=== PATIENT | male | born 1945 | race Caucasian/White ===

== ENCOUNTER 2017-10-27 00:58 | Observation (INO) | payer MEDICARE ==
[2017-10-27] MEDS ORDERED: MORPHINE SULFATE 4 MG INJ IV ONE (01:11)
[2017-10-27] MEDS ORDERED: Zofran 4 MG/2 ML VIAL IV ONE (01:11)
[2017-10-27] MEDS ORDERED: TORAdol 30 mg Injection IV ONE (01:11)
[2017-10-27] MEDS ORDERED: Pepcid 20 MG VIAL IV ONE ×2 (01:11→01:19)
[2017-10-27] MEDS ORDERED: Sodium Chloride 0.9% 1000 ML 1,000 ML IV STA (01:11)
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
[2017-10-27] MEDS ORDERED: Sodium Chloride 0.9% 1000 ML 1,000 ML ONE (01:19)
[2017-10-27] MEDS ORDERED: Zofran 4 MG/2 ML VIAL ONE (01:19)
[2017-10-27] MEDS ORDERED: TORAdol 30 mg Injection ONE (01:20)
[2017-10-27 01:32] LABS: BASOPHIL % 0.2 % (0.0-0.4); Basophil (Absolute #) 0.02 (0-0.4); Eosinophil % 2.9 % (0.00-5.0); Eosinophil (Absolute #) 0.29 (0-0.5); Granulocyte Absolute (ANC) 7.12 (1.4-6.9); Granulocytes % 70.7 % (36.0-66.0); Hematocrit 38.6 % (42-50); Hemoglobin 13.8 gm/dl (12.5-18.0); Lymphocyte (Absolute #) 1.92 (1.0-4.6); Lymphocytes % 19.1 % (24.0-44.0); Mean Cell Volume 92.8 fl (78-100); Mean Corpuscular Hemoglobin 33.2 pg (26-32); Mean Corpuscular Hgb Concent. 35.8 g/dl (32-36); Mean Platelet Volume 9.1 fl (6-9.5); Monocyte (Absolute #) 0.71 (0.0-1.3); Monocytes % 7.1 % (0.0-12.0); Platelet Count 148 K/mm3 (150-450); Red Blood Count 4.16 M/mm3 (4.1-5.6); Red Cell Distribution Width 12.8 % (11.5-14.0); White Blood Count 10.1 K/mm3 (4.0-10.5)
[2017-10-27 01:39] LABS: Appearance CLEAR (CLEAR); Bilirubin NEGATIVE (NEGATIVE); Blood NEGATIVE Ery/ul (0-5); Glucose NEGATIVE (NEGATIVE); Ketones NEGATIVE (NEGATIVE); Leukocyte Esterase NEGATIVE (NEGATIVE); Nitrite NEGATIVE (NEGATIVE); Protein,Urine Dip NEGATIVE (Negative); Specific Gravity 1.025 (1.005-1.025); Urobilinogen NORMAL mg/dL (0-1)
[2017-10-27 01:53] LABS: Amphetamine,Urine NEGATIVE (NEGATIVE); Barbiturate,Urine NEGATIVE (NEGATIVE); Benzodiazepine,Urine NEGATIVE (NEGATIVE); Cocaine,Urine NEGATIVE (NEGATIVE); Methadone,Urine NEGATIVE (NEGATIVE); Opiate,Urine NEGATIVE (NEGATIVE); PCP,Urine NEGATIVE (NEGATIVE); THC,Urine NEGATIVE (NEGATIVE)
[2017-10-27 02:23] LABS: ALBUMIN 4.5 g/dL (3.5-5.0); ALKALINE PHOSPHATASE 131 U/L (38-126); AMYLASE 82 U/L (30-110); ANION GAP 15.5 MEQ/L (5-15); BLOOD UREA NITROGEN 18 mg/dL (9-20); CHLORIDE 97 mmol/L (98-107); Carbon Dioxide 29 mmol/L (22-30); Creatinine 1 1.25 mg/dL (0.66-1.25); Glucose 117 mg/dL (74-106); LIPASE 71 U/L (23-300); Potassium 4.2 mmol/L (3.5-5.1); SGOT/AST 34 U/L (17-59); SGPT/ALT 28 U/L (0-50); SODIUM 137 mmol/L (137-145); Total Protein 7.2 g/dL (6.3-8.2)
[2017-10-27] MEDS ORDERED: MORPHINE SULFATE 2 MG INJ IV PRN (03:32)
[2017-10-27] MEDS ORDERED: Zofran 4 MG/2 ML VIAL IV PRN (03:32)
[2017-10-27] MEDS: Sodium Chloride 0.9% 1000 ML 1,000 ML IV SCH ×2 (04:14→14:29)
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
--- NOTE | 2017-10-27 09:28 | XRAY ---
Indication: Lower abdominal pain and cramping. Nausea, vomiting, diarrhea. History renal stones. Multiple contiguous axial images obtained through the abdomen and pelvis without contrast as ordered. Comparison: CT renal stone study November 10, 2008. Lung bases demonstrate a few calcified granulomas. No suspicious pulmonary mass, infiltrate, or effusion. Heart is not enlarged. Interval enlarging moderate-sized hiatal hernia. Noncontrasted stomach unremarkable. There are several mild fluid distended small bowel loops with synchronous fluid leveling. Intact right lower quadrant bowel anastomosis. Additional moderate air distended transverse and descending colon also with synchronous fluid leveling. Minimal narrowing at the descending/sigmoid junction with mild sigmoid/rectal fecal debris. Above findings may represent ileus versus enterocolitis. Partial distal colonic obstruction not completely excluded. No free fluid/air. Again nonobstructing bilateral renal micro-calculi and calcified splenic granulomas. New bilateral posterior urinary bladder tubular calcifications felt to be seminal vesicle calcifications. Again enlarged prostate gland impresses on the base of the urinary bladder. No hydronephrosis or hydroureter. Remaining liver, gallbladder, pancreas, spleen, adrenal glands, kidneys, ureters, and bladder appear unremarkable for noncontrast exam. Again mild aortoiliac calcifications without AAA. 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 Impression: 1. Abnormal distended small and large bowel loops with synchronous fluid leveling to the level of the descending/sigmoid colon junction either ileus versus enterocolitis. Partial colonic obstruction not completely excluded in the right clinical setting. 2. Interval enlarging moderate hiatal hernia. 3. Again nonobstructing bilateral renal micro-calculi, enlarged prostate gland, and evidence for old granulomatous disease. 4. Incidental new bilateral seminal vesicle calcifications commonly associated with diabetes and normal aging. 5. Interval worsening multilevel degenerative spondylosis and dextrorotoscoliosis. Comment: Preliminary interpretation was made by [facility]. No critical discrepancy. CT DI 13.96
[2017-10-27] MEDS ORDERED: NON-FORMULARY ITEM (Amlodipine Besylate 10 Mg [Norvasc 10 Mg] 10 MG) PO SCH (10:00)
[2017-10-27] MEDS ORDERED: Pepcid 20 MG VIAL IV SCH (10:00)
[2017-10-27] MEDS ORDERED: NORVASC 5 MG PO SCH ×2 (10:00)
[2017-10-27] MEDS ORDERED: Flomax 0.4 MG PO SCH ×2 (10:00)
[2017-10-27] MEDS ORDERED: ENOXAPARIN SODIUM SQ SCH (10:00)
[2017-10-27] MEDS: Pepcid 20 MG PO SCH ×2 (10:08→21:42)
[2017-10-28] MEDS: Sodium Chloride 0.9% 1000 ML 1,000 ML IV SCH (00:23)
[2017-10-28 05:52] LABS: BASOPHIL % 0.3 % (0.0-0.4); Basophil (Absolute #) 0.02 (0-0.4); Granulocyte Absolute (ANC) 3.28 (1.4-6.9); Granulocytes % 57.3 % (36.0-66.0); Hematocrit 37.5 % (42-50); Lymphocyte (Absolute #) 1.48 (1.0-4.6); Lymphocytes % 25.8 % (24.0-44.0); Mean Cell Volume 95.9 fl (78-100); Mean Corpuscular Hemoglobin 33.2 pg (26-32); Mean Corpuscular Hgb Concent. 34.7 g/dl (32-36); Mean Platelet Volume 9.5 fl (6-9.5); Monocyte (Absolute #) 0.55 (0.0-1.3); Monocytes % 9.6 % (0.0-12.0); Platelet Count 129 K/mm3 (150-450); Red Blood Count 3.91 M/mm3 (4.1-5.6); Red Cell Distribution Width 12.9 % (11.5-14.0); White Blood Count 5.7 K/mm3 (4.0-10.5)
[2017-10-28 05:58] LABS: ANION GAP 12.1 MEQ/L (5-15); BLOOD UREA NITROGEN 14 mg/dL (9-20); CHLORIDE 107 mmol/L (98-107); Calcium 8.5 mg/dL (8.4-10.2); Carbon Dioxide 24 mmol/L (22-30); Creatinine 1 0.99 mg/dL (0.66-1.25); Glucose 93 mg/dL (74-106); Potassium 4.2 mmol/L (3.5-5.1); SODIUM 138 mmol/L (137-145)
--- NOTE | 2017-10-28 07:34 | PCM.DCORD ---
- Discharge Discharge Date: 10/28/17 Disposition: Home, Self-Care Prescriptions: New Polyethylene Glycol 3350 17 gm [Miralax Powder 17GM PACKET] 17 gm PO DAILY #60 packet Continue Folic Acid 1 mg DAILY Multivitamin [Multi-Vitamin Daily] 1 ea DAILY Finasteride 5 mg [Proscar 5 MG] 5 mg DAILY Potassium Chloride 10 Meq Tab* [Klor Con 10 MEQ] 10 meq DAILY Tamsulosin HCl 0.4 mg [Flomax 0.4 MG] 0.4 mg DAILY Amlodipine Besylate 10 mg [Norvasc 10 MG] 10 mg DAILY Famotidine 20 mg [Pepcid 20 MG] 20 mg PO BID Etanercept [Enbrel] 50 mg SQ WEEKLY Eslicarbazepine Acetate [Aptiom] 600 mg PO BID Calcium Carbonate/Vitamin D3 [Calcium 500 mg Chewable Tablet] 1 each PO DAILY B12/Levomefolate Calcium/B-6 [Foltx Tablet] 1 each PO DAILY Aspirin [Ecotrin] 325 mg PO DAILY Follow up with: GALILEA DALLAS [Primary Care Provider] - 1 Week
[2017-10-28 08:33] VITALS: BP 122/74; PULSE 76; O2SAT 96
--- NOTE | 2017-10-28 08:35 | PCM.DCORD ---
- Discharge Discharge Date: 10/28/17 Prescriptions: New Polyethylene Glycol 3350 17 gm [Miralax Powder 17GM PACKET] 17 gm PO DAILY #60 packet Continue Folic Acid 1 mg DAILY Multivitamin [Multi-Vitamin Daily] 1 ea DAILY Finasteride 5 mg [Proscar 5 MG] 5 mg DAILY Potassium Chloride 10 Meq Tab* [Klor Con 10 MEQ] 10 meq DAILY Tamsulosin HCl 0.4 mg [Flomax 0.4 MG] 0.4 mg DAILY Amlodipine Besylate 10 mg [Norvasc 10 MG] 10 mg DAILY Famotidine 20 mg [Pepcid 20 MG] 20 mg PO BID Etanercept [Enbrel] 50 mg SQ WEEKLY Eslicarbazepine Acetate [Aptiom] 600 mg PO BID Calcium Carbonate/Vitamin D3 [Calcium 500 mg Chewable Tablet] 1 each PO DAILY B12/Levomefolate Calcium/B-6 [Foltx Tablet] 1 each PO DAILY Aspirin [Ecotrin] 325 mg PO DAILY Instructions: Acute Abdomen (Belly Pain), Adult (DC) Follow up with: GALILEA DALLAS [Primary Care Provider] - 11/04/17 9:00 am Forms: Discharge Instructions
--- NOTE | 2017-10-28 09:14 | DS ---
DISCHARGE DIAGNOSIS: OBSTIPATION: HOSPITAL COURSE: The patient is a 72 year-old white male patient who began having problems with abdominal pain and bloating. He has history of multiple abdominal surgeries in the past. He was brought into the emergency room. CT scan showed a possible blockage in his large bowel with dilatation of the bowel up to that point. Surgical consultation with Dr. Magallanes was obtained. The patient was placed a gut rest and later in the day of 10/27/2017 the patient began having large bowel movements. By the morning of 10/28/2017, he was essentially back to normal. His bowel was still slightly distended but with normal active bowel sounds. He had a regular diet later that evening and is now felt to be ready for discharge home again. The patient was instructed to take MiraLAX on a daily basis and to follow up in the office in one week to continue his usual home medications otherwise.
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
== END 2017-10-28 09:40 | disposition home or self-care (01) ==
LOC: ED 00:58 → MED SURG 03:29
PROVIDERS: ADMIT Family Medicine; ATTEND Family Medicine
DX: K59.00 Constipation, unspecified (principal); I10 Essential (primary) hypertension; N40.0 Benign prostatic hyperplasia without lower urinary tract symptoms
CPT/HCPCS: 36000; 36415; 74176; 80048; 80053; 80307; 81002; 82150; 83605; 83690; 84484; 85025; 93005; 96360; 96374; 96375; 99285; G0378; J1650; J1885; J2405; A9270-GY

== ENCOUNTER 2017-12-08 05:33 | Emergency (ER) | payer MEDICARE ==
[2017-12-08] MEDS ORDERED: Zofran 4 MG/2 ML VIAL IV ONE (05:53)
[2017-12-08] MEDS ORDERED: Sodium Chloride 0.9% 1000 ML 1,000 ML IV STA (05:53)
[2017-12-08] MEDS ORDERED: Zofran 4 MG/2 ML VIAL ONE (06:00)
[2017-12-08] MEDS ORDERED: Sodium Chloride 0.9% 1000 ML 1,000 ML ONE (06:00)
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
[2017-12-08 06:49] LABS: BASOPHIL % 0.2 % (0.0-0.4); Basophil (Absolute #) 0.02 (0-0.4); Eosinophil % 1.4 % (0.00-5.0); Eosinophil (Absolute #) 0.13 (0-0.5); Granulocyte Absolute (ANC) 7.84 (1.4-6.9); Granulocytes % 82.9 % (36.0-66.0); Hematocrit 38.1 % (42-50); Hemoglobin 13.2 gm/dl (12.5-18.0); Lymphocyte (Absolute #) 0.85 (1.0-4.6); Mean Cell Volume 96.2 fl (78-100); Mean Corpuscular Hemoglobin 33.3 pg (26-32); Mean Corpuscular Hgb Concent. 34.6 g/dl (32-36); Mean Platelet Volume 9.7 fl (6-9.5); Monocyte (Absolute #) 0.61 (0.0-1.3); Monocytes % 6.5 % (0.0-12.0); Platelet Count 158 K/mm3 (150-450); Red Blood Count 3.96 M/mm3 (4.1-5.6); Red Cell Distribution Width 13.2 % (11.5-14.0); White Blood Count 9.5 K/mm3 (4.0-10.5)
[2017-12-08 07:09] LABS: ALBUMIN 4.4 g/dL (3.5-5.0); ALKALINE PHOSPHATASE 122 U/L (38-126); BLOOD UREA NITROGEN 18 mg/dL (9-20); CHLORIDE 105 mmol/L (98-107); Calcium 9.3 mg/dL (8.4-10.2); Carbon Dioxide 29 mmol/L (22-30); Glucose 128 mg/dL (74-106); LIPASE 31 U/L (23-300); Potassium 4.2 mmol/L (3.5-5.1); SGOT/AST 34 U/L (17-59); SGPT/ALT 34 U/L (0-50); SODIUM 144 mmol/L (137-145); Total Protein 7.1 g/dL (6.3-8.2)
[2017-12-08 08:23] LABS: Appearance CLEAR (CLEAR); Bilirubin NEGATIVE (NEGATIVE); Glucose NEGATIVE (NEGATIVE); Ketones NEGATIVE (NEGATIVE); Leukocyte Esterase TRACE (NEGATIVE); Nitrite NEGATIVE (NEGATIVE); Protein,Urine Dip NEGATIVE (Negative); Urobilinogen NORMAL mg/dL (0-1)
[2017-12-08 08:24] LABS: Bacteria FEW /HPF (NEGATIVE); Epithelial Cells RARE /HPF (FEW); WBC 0-2 /HPF (0-5)
--- NOTE | 2017-12-08 08:48 | XRAY ---
Indication: Abdominal pain, nausea, and constipation. Multiple contiguous axial images obtained through the abdomen and pelvis using 80 cc Isovue 370 contrast only. Comparison: Noncontrast exam October 27, 2017. Lung bases demonstrate minimal bibasilar dependent atelectasis with stable tiny calcified granulomas. No infiltrate or effusion. Heart is not enlarged. Stable moderate-sized hiatal hernia. Stomach is mildly distended with food.. There is again distended small and large bowel loops with synchronous fluid leveling. There is again colonic distention up to 5.6 cm in diameter. Descending colon now demonstrates mild pericolonic stranding. Findings again either ileus versus enterocolitis. No free fluid/air. There is increasing fecal debris in the sigmoid colon. Bilateral seminal vesicle calcifications previously reported on noncontrast exam today appear to be distal ureteral calculi. New 10 mm right posterior urinary bladder calculus. Mild bilateral hydronephrosis but no hydroureter suggestive of mild partial obstruction. No perinephric fluid either. Stable calcified splenic granulomas and enlarged prostate gland. Remaining liver, gallbladder, pancreas, spleen, adrenal glands, kidneys, and bladder appear unremarkable. Stable mild aortoiliac calcifications. No AAA or pathologic retroperitoneal lymphadenopathy. 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 Impression: 1. Again distended small and large bowel loops with synchronous fluid leveling. New pericolonic stranding in the descending colon. Rule out ileus versus enterocolitis. Worsening sigmoid fecal impaction. 2. Previous bilateral seminal vesicle calcifications are actually distal ureteral calculi on today's contrasted exam. Also new 1 cm right bladder calculi. New mild bilateral hydronephrosis favoring partial obstructive uropathy. 3. Stable enlarged prostate gland and evidence for old granulomatous disease. CTDI 16.36
[2017-12-08] MEDS ORDERED: Dulcolax 10 MG SUPP PR ONE (09:10)
[2017-12-08 09:23] VITALS: BP 139/78; PULSE 86; O2SAT 97
== END 2017-12-08 09:40 | disposition home or self-care (01) ==
LOC: ED 05:33
DX: K59.00 Constipation, unspecified (principal); R10.84 Generalized abdominal pain; R11.2 Nausea with vomiting, unspecified; Z79.899 Other long term (current) drug therapy; Z79.82 Long term (current) use of aspirin
CPT/HCPCS: 36000; 36415; 74177; 80053; 81000; 82272; 83690; 85025; 87086; 96360; 96374; 99284; J2405; A9270-GY

== ENCOUNTER 2019-06-22 23:43 | Emergency (ER) | payer MEDICARE ==
[2019-06-23] MEDS ORDERED: Hydromorphone 1 mg/ml Ampule IV ONE (00:14)
[2019-06-23] MEDS ORDERED: Zofran 4 MG/2 ML VIAL IV ONE (00:14)
[2019-06-23] MEDS ORDERED: Sodium Chloride 0.9% 1000 ML 1,000 ML IV STA (00:14)
[2019-06-23] MEDS ORDERED: TORAdol 30 mg Injection IV ONE (00:14)
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
[2019-06-23] MEDS ORDERED: Zofran 4 MG/2 ML VIAL ONE (00:18)
[2019-06-23] MEDS ORDERED: Hydromorphone 1 mg/ml Ampule ONE (00:19)
[2019-06-23] MEDS ORDERED: TORAdol 30 mg Injection ONE (00:19)
[2019-06-23] MEDS ORDERED: Sodium Chloride 0.9% 1000 ML 1,000 ML ONE (00:19)
[2019-06-23 00:42] LABS: Absolute Neutrophil Ct (ANC) 10.93 (1.4-6.9); BASOPHIL % 0.2 % (0.0-0.4); Basophil (Absolute #) 0.03 (0-0.4); Eosinophil % 0.3 % (0.00-5.0); Eosinophil (Absolute #) 0.04 (0-0.5); Hematocrit 37.6 % (42-50); Hemoglobin 12.3 gm/dl (12.5-18.0); Lymphocyte (Absolute #) 1.07 (1.0-4.6); Lymphocytes % 8.2 % (24.0-44.0); Mean Cell Volume 96.9 fl (78-100); Mean Corpuscular Hemoglobin 31.7 pg (26-32); Mean Corpuscular Hgb Concent. 32.7 g/dl (32-36); Monocyte (Absolute #) 0.94 (0.0-1.3); Monocytes % 7.2 % (0.0-12.0); Neutrophil % 84.1 % (36.0-66.0); Platelet Count 266 K/mm3 (150-450); Red Blood Count 3.88 M/mm3 (4.1-5.6); Red Cell Distribution Width 13.4 % (11.5-14.0)
[2019-06-23 00:50] LABS: Appearance SLIGHTLY CLOUDY (CLEAR); Bilirubin NEGATIVE (NEGATIVE); Blood SMALL Ery/ul (0-5); Glucose NEGATIVE (NEGATIVE); Ketones NEGATIVE (NEGATIVE); Leukocyte Esterase NEGATIVE (NEGATIVE); Mucus SLIGHT /HPF (NEGATIVE); Nitrite NEGATIVE (NEGATIVE); Protein,Urine Dip 30 (Negative); Urobilinogen NEGATIVE mg/dL (0-1)
[2019-06-23 00:53] LABS: ANION GAP 14.2 MEQ/L (5-15); BILIRUBIN,TOTAL 0.4 mg/dL (0.2-1.3); Calcium 9.4 mg/dL (8.4-10.2); Creatinine 1 1.5 mg/dL (0.66-1.25); Potassium 3.7 mmol/L (3.5-5.1); Total Protein 7.1 g/dL (6.3-8.2)
[2019-06-23] MEDS ORDERED: Flomax 0.4 MG PO ONE (01:38)
[2019-06-23] MEDS ORDERED: Flomax 0.4 MG ONE (01:40)
[2019-06-23 02:30] VITALS: BP 158/99; PULSE 70; O2SAT 97
--- NOTE | 2019-06-23 09:43 | XRAY ---
Indication: Right abdomen/flank pain. Multiple contiguous axial images obtained through the abdomen and pelvis without contrast as ordered. Comparison: December 08, 2017. Lung bases again demonstrates mild fibrosis/scarring and tiny calcified granulomas. No infiltrate or effusion. Heart is not enlarged. Stable small hiatal hernia. Stomach is unremarkable. Noncontrasted bowel loops appear nonobstructed again with right hemicolectomy. Intact anastomosis. No free fluid/air. There are again multiple distal bilateral ureteral calculi, right greater the left. Proximal right ureter is now distended up to 11 mm and there is moderate hydronephrosis consistent with obstructive uropathy. Left kidney negative for hydronephrosis or obstructive uropathy. There are again multiple bilateral renal micro-calculi. Posterior urinary bladder demonstrates interval enlarging chunky calculi on the right today measuring 1.5 x 1.8 cm. Bladder mass not completely excluded. Stable calcified splenic granulomas and enlarged prostate gland with benign calcifications. Remaining liver, gallbladder, pancreas, spleen, antigen glands appear unremarkable for noncontrast exam. Stable mild scattered aortoiliac calcifications without AAA. Osseous structures again demonstrates osteopenia, moderate/advanced multilevel degenerative spondylosis, and dextrorotoscoliosis. Impression: 1. Worsening bilateral distal ureteral and urinary bladder calculi as detailed. Also worsening right sided hydronephrosis and hydroureter. Again additional bilateral renal micro-calculi. 2. Stable hiatal hernia, enlarged prostate, chronic bony findings, and evidence for old granulomatous disease. Comment: Preliminary interpretation was made by [facility]. No critical discrepancy.
== END 2019-06-23 02:46 | disposition home or self-care (01) ==
LOC: ED 23:43
DX: N20.1 Calculus of ureter (principal)
CPT/HCPCS: 36000; 36415; 74176; 80053; 81001; 82150; 83605; 83690; 85025; 87086; 96360; 96374; 96375; 99284; J1170; J1885; J2405; A9270-GY

== ENCOUNTER 2019-08-15 08:04 | Emergency (ER) | payer MEDICARE | END 2019-08-15 08:18 | disposition left against medical advice (07) | LOC: ED 08:04 | DX: Z53.9 Procedure and treatment not carried out, unspecified reason (principal) ==

== ENCOUNTER 2019-09-02 08:52 | Emergency (ER) | payer MEDICARE ==
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
[2019-09-02 10:28] LABS: Absolute Neutrophil Ct (ANC) 6.74 (1.4-6.9); BASOPHIL % 0.1 % (0.0-0.4); Basophil (Absolute #) 0.01 (0-0.4); Eosinophil % 1.1 % (0.00-5.0); Eosinophil (Absolute #) 0.09 (0-0.5); Hematocrit 34.9 % (42-50); Hemoglobin 11.2 gm/dl (12.5-18.0); Lymphocyte (Absolute #) 0.75 (1.0-4.6); Lymphocytes % 9.1 % (24.0-44.0); Mean Cell Volume 95.9 fl (78-100); Mean Corpuscular Hemoglobin 30.8 pg (26-32); Mean Corpuscular Hgb Concent. 32.1 g/dl (32-36); Mean Platelet Volume 9.1 fl (7.5-11.0); Monocyte (Absolute #) 0.64 (0.0-1.3); Monocytes % 7.8 % (0.0-12.0); Neutrophil % 81.9 % (36.0-66.0); Platelet Count 199 K/mm3 (150-450); Red Blood Count 3.64 M/mm3 (4.1-5.6); Red Cell Distribution Width 13.3 % (11.5-14.0); White Blood Count 8.2 K/mm3 (4.0-10.5)
[2019-09-02 11:25] LABS: ALBUMIN 3.3 g/dL (3.5-5.0); ALKALINE PHOSPHATASE 104 U/L (38-126); ANION GAP 11.7 MEQ/L (5-15); BLOOD UREA NITROGEN 15 mg/dL (9-20); CHLORIDE 107 mmol/L (98-107); Calcium 8.9 mg/dL (8.4-10.2); Carbon Dioxide 28 mmol/L (22-30); Creatinine 1 0.71 mg/dL (0.66-1.25); Glucose 101 mg/dL (74-106); MAGNESIUM 1.9 mg/dL (1.6-2.3); Potassium 4.4 mmol/L (3.5-5.1); SGOT/AST 22 U/L (17-59); SGPT/ALT 17 U/L (0-50); SODIUM 143 mmol/L (137-145); Total Protein 6.2 g/dL (6.3-8.2)
[2019-09-02] MEDS ORDERED: ENOXAPARIN SODIUM SQ ONE ×2 (13:50→14:15)
[2019-09-02 14:17] LABS: INR 1.04 (0.8-3.0); PROTIME 11.8 SECONDS (8.83-12.87)
[2019-09-02 14:18] VITALS: BP 143/72; PULSE 86; O2SAT 95
[2019-09-02 14:19] LABS: PTT 28.9 SECONDS (24.1-36.1)
--- NOTE | 2019-09-02 19:59 | XRAY ---
Indication: Pain. No known injury. Comparison: None 3 views of the left shoulder demonstrates osteopenia and total shoulder arthroplasty with intact bipolar prosthesis. No other bony, articular, or soft tissue abnormalities. Comment: Preliminary interpretation was made by [facility]. No critical discrepancy.
--- NOTE | 2019-09-02 20:01 | XRAY ---
Indication: Pain. No known injury. Comparison: None 2 views of the right femur demonstrates mild osteopenia, medial/lateral knee degenerative chondrocalcinosis, and scattered vascular calcifications. No other bony, articular, or soft tissue abnormalities. Comment: Preliminary interpretation was made by [facility]. No critical discrepancy.
--- NOTE | 2019-09-02 20:01 | XRAY ---
Indication: Pain. No known injury. Comparison: None 2 views of the right knee demonstrates mild osteopenia, scattered vascular calcifications, and faint medial/lateral knee degenerative chondrocalcinosis. No other bony, articular, or soft tissue abnormalities. Comment: Preliminary interpretation was made by [facility]. No critical discrepancy.
--- NOTE | 2019-09-02 20:03 | XRAY ---
Indication: Pain and swelling. No known injury. 2-dimensional sonogram and color Doppler imaging of the major venous vessels of the right leg was performed. Comparison: None There is minimal eccentric thrombus seen in the common femoral vein. No other thrombus seen in the remaining deep venous vessels including greater saphenous vein. Patent veins demonstrate normal compressibility. Venous waveforms are normal with and without augmentation. Impression: Minimal deep vein thrombosis in the common femoral vein. Comment: Preliminary report was given.
--- NOTE | 2019-09-02 20:09 | XRAY ---
Indication: Elevated d-dimer. Right leg DVT. Multiple contiguous axial images obtained through the chest using 100 cc Isovue 370 contrast and PE protocol. Comparison: CT chest without contrast April 10, 2009. There is good opacification of the pulmonary arteries to include the lobar and segmental branches. No filling defect or pulmonary embolus. Heart is not enlarged. Aorta is normal in course and caliber. Stable small left perihilar calcified nodes. No pathologic mediastinal/hilar lymphadenopathy. New small hiatal hernia. Examination of the lung parenchyma again demonstrates tiny calcified/noncalcified granulomas and minimal scattered fibrosis/scarring. No suspicious pulmonary mass, infiltrate, or effusion. Bony thorax now demonstrates osteopenia and bilateral shoulder arthroplasty. Limited upper abdomen unremarkable. Impression: 1. Negative pulmonary embolus. No acute cardiopulmonary abnormalities. 2. New small hiatal hernia and bilateral shoulder arthroplasty. 3. Again evidence for old granulomatous disease. Comment: Preliminary interpretation was made by [facility]. No critical discrepancy.
== END 2019-09-02 14:36 | disposition home or self-care (01) ==
LOC: ED 08:52
DX: I82.4Z1 Acute embolism and thrombosis of unspecified deep veins of right distal lower extremity (principal); M25.512 Pain in left shoulder; R79.89 Other specified abnormal findings of blood chemistry; I10 Essential (primary) hypertension; M25.561 Pain in right knee; Z79.899 Other long term (current) drug therapy
CPT/HCPCS: 36000; 36415; 71260; 73030; 73552; 73560; 80053; 83735; 84484; 84550; 85025; 85379; 85610; 85730; 93005; 93971; 96372; 99284; J1650

== ENCOUNTER 2019-11-12 10:22 | Emergency (ER) | payer MEDICARE ==
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
[2019-11-12] MEDS ORDERED: Sodium Chloride 0.9% 1000 ML 1,000 ML IV STA (10:37)
[2019-11-12] MEDS ORDERED: Zofran 4 MG/2 ML VIAL IV ONE (10:37)
[2019-11-12] MEDS ORDERED: Zofran 4 MG/2 ML VIAL ONE (10:43)
[2019-11-12] MEDS ORDERED: Sodium Chloride 0.9% 1000 ML 1,000 ML ONE (10:43)
[2019-11-12 11:05] LABS: Absolute Neutrophil Ct (ANC) 5.69 (1.4-6.9); BASOPHIL % 0.3 % (0.0-0.4); Basophil (Absolute #) 0.02 (0-0.4); Eosinophil % 1.2 % (0.00-5.0); Eosinophil (Absolute #) 0.09 (0-0.5); Hematocrit 34.3 % (42-50); Lymphocytes % 18.1 % (24.0-44.0); Mean Cell Volume 91.5 fl (78-100); Mean Corpuscular Hemoglobin 29.3 pg (26-32); Mean Corpuscular Hgb Concent. 32.1 g/dl (32-36); Mean Platelet Volume 8.5 fl (7.5-11.0); Monocyte (Absolute #) 0.52 (0.0-1.3); Monocytes % 6.7 % (0.0-12.0); Neutrophil % 73.7 % (36.0-66.0); Platelet Count 234 K/mm3 (150-450); Red Blood Count 3.75 M/mm3 (4.1-5.6); Red Cell Distribution Width 13.7 % (11.5-14.0); White Blood Count 7.7 K/mm3 (4.0-10.5)
[2019-11-12 11:08] LABS: Appearance CLEAR (CLEAR); Bilirubin NEGATIVE (NEGATIVE); Blood SMALL Ery/ul (0-5); Glucose NEGATIVE (NEGATIVE); Ketones NEGATIVE (NEGATIVE); Leukocyte Esterase NEGATIVE (NEGATIVE); Mucus SLIGHT /HPF (NEGATIVE); Nitrite NEGATIVE (NEGATIVE); Protein,Urine Dip NEGATIVE (Negative); Specific Gravity 1.015 (1.005-1.025); Urobilinogen NEGATIVE mg/dL (0-1)
[2019-11-12 11:15] LABS: ALBUMIN 3.6 g/dL (3.5-5.0); ALKALINE PHOSPHATASE 117 U/L (38-126); AMYLASE 99 U/L (30-110); ANION GAP 11.6 MEQ/L (5-15); BLOOD UREA NITROGEN 18 mg/dL (9-20); CHLORIDE 102 mmol/L (98-107); Calcium 9.2 mg/dL (8.4-10.2); Carbon Dioxide 27 mmol/L (22-30); Creatinine 1 0.89 mg/dL (0.66-1.25); Glucose 93 mg/dL (74-106); LIPASE 70 U/L (23-300); Potassium 3.9 mmol/L (3.5-5.1); SGOT/AST 24 U/L (17-59); SGPT/ALT 26 U/L (0-50); SODIUM 137 mmol/L (137-145); Total Protein 6.6 g/dL (6.3-8.2)
[2019-11-12 11:32] VITALS: BP 149/82; PULSE 76; O2SAT 98
--- NOTE | 2019-11-12 11:48 | XRAY ---
Indication: Left flank pain. History kidney stone. Multiple contiguous axial images obtained through the abdomen and pelvis without contrast as ordered. Comparison: December 08, 2017. Lung bases demonstrates right middle lobe and left lower lobe calcified granulomas. No infiltrate or effusion. Heart is not enlarged. Noncontrasted stomach and bowel loops appear nonobstructed. Interval partial right hemicolectomy and sigmoid resection with intact anastomosis. No free fluid/air. Again mild diffuse fecal debris in the remaining colon/rectum. New 7 mm distal left ureter calculus approximately 2 cm proximal to the UVJ. Distal right ureter and UVJ calculi are diminished in number with now solitary 5-6 mm UVJ calculus. Posterior right urinary bladder micro-calculi are increased in number now numbering 3-4, largest 5 mm. No hydronephrosis, hydroureter, or perinephric fluid. Left and right kidneys demonstrates at least 2 micro-calculi, largest right midpole measuring 4 mm. Stable calcified splenic granulomas and enlarged prostate gland. Remaining liver, gallbladder, pancreas, spleen, adrenal glands, kidneys, ureters, and bladder appear unremarkable for noncontrast exam. Stable mild aortoiliac calcifications without AAA. Osseous structures again demonstrate moderate/advanced degenerative spondylosis throughout the thoracolumbar spine and dextrorotoscoliosis. Impression: 1. New 7 mm distal left ureter calculus without hydronephrosis/hydroureter or evidence for obstructive uropathy. Again bilateral renal, distal right ureter, and urinary bladder micro-calculi as detailed. 2. Status post partial right hemicolectomy and sigmoid resection without complications. Again mild fecal stasis. 3. Stable enlarged prostate gland, chronic bony findings, and evidence for granulomatous disease.
== END 2019-11-12 12:23 | disposition home or self-care (01) ==
LOC: ED 10:22
DX: N20.1 Calculus of ureter (principal); N20.0 Calculus of kidney
CPT/HCPCS: 36000; 36415; 74176; 80053; 81001; 82150; 83605; 83690; 85025; 96360; 96374; 99284; J2405

== ENCOUNTER 2019-11-20 05:42 | Emergency (ER) | payer OTHER ==
[2019-11-20] MEDS ORDERED: TORAdol 30 mg Injection ONE (06:16)
[2019-11-20] MEDS: TORAdol 30 mg Injection IM ONE (06:17)
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
[2019-11-20 07:46] VITALS: BP 151/84; PULSE 75; O2SAT 97
--- NOTE | 2019-11-20 08:52 | XRAY ---
Indication: Pain following fall. Comparison: None 3 view left knee demonstrates mild osteopenia and moderate scattered vascular calcifications. No other bony, articular, or soft tissue abnormalities.
--- NOTE | 2019-11-20 08:54 | XRAY ---
Indication: Left hip pain following fall 4 days ago. Multiple contiguous axial images obtained through the pelvis with special attention to the osseous structures. Sagittal and coronal reformatted images obtained. Comparison: November 12, 2019. Osseous structures remain demineralized with stable lower lumbar degenerative spondylosis, scoliosis, and tiny right sacrum subcortical cyst. No acute fracture, dislocation, or suspicious bony lesions. Visualized noncontrasted soft tissues unremarkable with stable intact right hemicolectomy, enlarged prostate gland, and scattered vascular calcifications. Previous left ureter calculus has passed. No ventral or inguinal hernias. Impression: 1. Negative acute fracture/dislocation. 2. Stable incidental chronic features as detailed above.
== END 2019-11-20 08:06 | disposition home or self-care (01) ==
LOC: ED 05:42
DX: S70.02XA Contusion of left hip, initial encounter (principal); W01.198A Fall on same level from slipping, tripping and stumbling with subsequent striking against other object, initial encounter
CPT/HCPCS: 72192; 73562; 96372; 99284; J1885

== ENCOUNTER 2019-11-26 15:40 | Emergency (ER) | payer MEDICARE ==
[2019-11-26 15:55] VITALS: BP 143/90
[2019-11-26] MEDS ORDERED: PERCOCET TABLET 5/325MG PO STA (16:10)
[2019-11-26] MEDS ORDERED: PERCOCET TABLET 5/325MG ONE (16:15)
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
[2019-11-26 16:20] VITALS: PULSE 98; O2SAT 98
== END 2019-11-26 16:36 | disposition home or self-care (01) ==
LOC: ED 15:40
DX: M25.562 Pain in left knee (principal); M19.90 Unspecified osteoarthritis, unspecified site
CPT/HCPCS: 36415; 99283; A9270-GY

== ENCOUNTER 2019-12-03 20:43 | Emergency (ER) | payer MEDICARE ==
[2019-12-03] MEDS ORDERED: TORAdol 30 mg Injection IM ONE (21:10)
[2019-12-03] MEDS ORDERED: DECADRON 10MG INJ. PO ONE (21:12)
[2019-12-03] MEDS ORDERED: DECADRON 10MG INJ. ONE (21:27)
[2019-12-03] MEDS ORDERED: TORAdol 30 mg Injection ONE (21:27)
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
[2019-12-03] MEDS ORDERED: Sodium Chloride 0.9% 1000 ML 1,000 ML ONE (21:51)
[2019-12-03] MEDS ORDERED: TYLENOL 325 MG ONE (21:51)
[2019-12-03 22:03] LABS: Appearance CLEAR (CLEAR); Bilirubin NEGATIVE (NEGATIVE); Blood SMALL Ery/ul (0-5); Glucose NEGATIVE (NEGATIVE); Ketones NEGATIVE (NEGATIVE); Leukocyte Esterase NEGATIVE (NEGATIVE); Mucus SLIGHT /HPF (NEGATIVE); Nitrite NEGATIVE (NEGATIVE); Protein,Urine Dip NEGATIVE (Negative); Specific Gravity 1.023 (1.005-1.025); Urobilinogen NEGATIVE mg/dL (0-1); WBC 0-2 /HPF (0-5)
[2019-12-03 23:38] VITALS: BP 133/102; PULSE 72; O2SAT 98
--- NOTE | 2019-12-04 08:41 | XRAY ---
Indication: Low back pain. Comparison: None AP/lateral lumbar spine demonstrates 5 lumbar vertebral segments with age-related osteopenia, moderate dextrorotoscoliosis centered at L1, mild/moderate multilevel degenerative spondylosis greatest L2-L3, aortic calcifications, 6 mm right renal calcification/calculus, and right mid abdomen suture material. No other bony, articular, or soft tissue abnormalities. Comment: Preliminary interpretation was made by [facility]. No critical discrepancy.
== END 2019-12-03 23:40 | disposition home or self-care (01) ==
LOC: ED 20:43
DX: M54.5 Low back pain (principal); M41.56 Other secondary scoliosis, lumbar region; I10 Essential (primary) hypertension; Z79.899 Other long term (current) drug therapy; R31.29 Other microscopic hematuria
CPT/HCPCS: 72100; 81001; 96372; 99284; J1100; J1885; A9270-GY

== ENCOUNTER 2020-01-25 12:27 | Emergency (ER) | payer MEDICARE ==
[2020-01-25 12:44] VITALS: O2SAT 97
[2020-01-25 13:31] VITALS: BP 134/76; PULSE 79
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
--- NOTE | 2020-01-25 14:14 | XRAY ---
Exam: Bilateral lower extremity duplex Doppler venous ultrasound exam from 01/25/2020. Comparison: Right lower extremity duplex Doppler venous ultrasound exam from 09/02/2019. Indication: Pain within right upper leg, history of prior DVT in right common femoral vein. Patient is currently taking blood thinners. Findings: Garcia scale images, color flow images, and Doppler tracings were obtained of both lower extremities in the usual manner. Normal color blood flow, transducer compression, and Doppler signal without and with augmentation was seen throughout bilaterally. Specifically, no evidence of clot was seen within the right common femoral vein. Normal compression is seen within both greater saphenous veins within each proximal thigh. At the posterior medial aspect of the right knee level, there is a small relatively hypoechoic/sonolucent area measuring about 2.8 cm x 0.8 cm in cross section which may represent a small popliteal cyst. Some cine clips were obtained at this level. This is separate from the popliteal vessels. Impression: 1. I see no evidence of residual deep venous thrombosis within the proximal right thigh or elsewhere throughout both lower extremities. No superficial venous thrombosis was seen as well. 2. Relatively sonolucent area at posterior medial aspect of right knee may represent a popliteal cyst.
== END 2020-01-25 13:50 | disposition home or self-care (01) ==
LOC: ED 12:27
DX: M25.561 Pain in right knee (principal); M71.21 Synovial cyst of popliteal space [Baker], right knee; M79.606 Pain in leg, unspecified; Z86.718 Personal history of other venous thrombosis and embolism; M79.672 Pain in left foot; M79.671 Pain in right foot; M79.652 Pain in left thigh; M79.651 Pain in right thigh; Z79.899 Other long term (current) drug therapy; I10 Essential (primary) hypertension; G40.909 Epilepsy, unspecified, not intractable, without status epilepticus
CPT/HCPCS: 93970; 99283

== ENCOUNTER 2020-02-23 15:01 | Emergency (ER) | payer MEDICARE ==
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
[2020-02-23] MEDS ORDERED: TORAdol 30 mg Injection IM ONE (16:08)
[2020-02-23] MEDS ORDERED: TORAdol 30 mg Injection ONE (16:15)
[2020-02-23 16:29] VITALS: BP 147/83; PULSE 76; O2SAT 97
--- NOTE | 2020-02-23 18:36 | XRAY ---
Indication: Bilateral hip pain. No known injury. Comparison: None AP pelvis and 2 views of the left and right hip demonstrates mild osteopenia, moderate/advanced right hip degenerative arthropathy, lower lumbar degenerative spondylosis, and right pelvic inlet suture material. No other bony, articular, or soft tissue abnormalities. Comment: Preliminary interpretation was made by [facility]. No critical discrepancy.
== END 2020-02-23 16:37 | disposition home or self-care (01) ==
LOC: ED 15:01
DX: M16.11 Unilateral primary osteoarthritis, right hip (principal); M25.551 Pain in right hip; Z79.899 Other long term (current) drug therapy; I10 Essential (primary) hypertension; Z86.718 Personal history of other venous thrombosis and embolism; G40.909 Epilepsy, unspecified, not intractable, without status epilepticus
CPT/HCPCS: 73521; 96372; 99284; J1885

== ENCOUNTER 2020-06-29 14:11 | Emergency (ER) | payer MEDICARE ==
[2020-06-29] MEDS ORDERED: Sodium Chloride 0.9% 1000 ML 1,000 ML IV STA (14:35)
[2020-06-29] MEDS ORDERED: Zofran 4 MG/2 ML VIAL IV ONE (14:35)
[2020-06-29] MEDS ORDERED: ANTIVERT 25 MG PO ONE (14:37)
[2020-06-29] MEDS ORDERED: Sodium Chloride 0.9% 1000 ML 1,000 ML ONE (14:44)
[2020-06-29] MEDS ORDERED: ANTIVERT 25 MG ONE (14:44)
[2020-06-29] MEDS ORDERED: Zofran 4 MG/2 ML VIAL ONE (14:44)
[2020-06-29 14:59] LABS: Absolute Neutrophil Ct (ANC) 9.68 (1.4-6.9); BASOPHIL % 0.2 % (0.0-0.4); Basophil (Absolute #) 0.02 (0-0.4); Eosinophil % 0.1 % (0.00-5.0); Eosinophil (Absolute #) 0.01 (0-0.5); Hematocrit 30.1 % (42-50); Hemoglobin 9.1 gm/dl (12.5-18.0); Lymphocyte (Absolute #) 0.55 (1.0-4.6); Lymphocytes % 5.1 % (24.0-44.0); Mean Cell Volume 87.8 fl (78-100); Mean Corpuscular Hemoglobin 26.5 pg (26-32); Mean Corpuscular Hgb Concent. 30.2 g/dl (32-36); Mean Platelet Volume 8.4 fl (7.5-11.0); Monocyte (Absolute #) 0.47 (0.0-1.3); Monocytes % 4.4 % (0.0-12.0); Neutrophil % 90.2 % (36.0-66.0); Platelet Count 322 K/mm3 (150-450); Red Blood Count 3.43 M/mm3 (4.1-5.6); Red Cell Distribution Width 14.7 % (11.5-14.0); White Blood Count 10.7 K/mm3 (4.0-10.5)
[2020-06-29 15:20] LABS: ALBUMIN 3.9 g/dL (3.5-5.0); ALKALINE PHOSPHATASE 125 U/L (38-126); AMYLASE 74 U/L (30-110); BLOOD UREA NITROGEN 17 mg/dL (9-20); CHLORIDE 87 mmol/L (98-107); Calcium 9.2 mg/dL (8.4-10.2); Carbon Dioxide 29 mmol/L (22-30); Creatinine 1 0.78 mg/dL (0.66-1.25); EST GLOMERULAR FILTRATION RATE > 60.0 ML/MIN; Glucose 135 mg/dL (74-106); LIPASE 35 U/L (23-300); SGOT/AST 33 U/L (17-59); SGPT/ALT 36 U/L (0-50); SODIUM 123 mmol/L (137-145); Total Protein 7.1 g/dL (6.3-8.2)
[2020-06-29 15:21] LABS: Potassium 4.8 mmol/L (3.5-5.1)
[2020-06-29 15:22] LABS: ANION GAP 11.8 MEQ/L (5-15)
[2020-06-29 16:20] LABS: Appearance CLEAR (CLEAR); Bilirubin NEGATIVE (NEGATIVE); Blood NEGATIVE Ery/ul (0-5); Glucose NEGATIVE (NEGATIVE); Ketones NEGATIVE (NEGATIVE); Leukocyte Esterase NEGATIVE (NEGATIVE); Nitrite NEGATIVE (NEGATIVE); Protein,Urine Dip NEGATIVE (Negative); Specific Gravity 1.013 (1.005-1.025); Urobilinogen NEGATIVE mg/dL (0-1)
[2020-06-29 16:21] VITALS: BP 179/80; PULSE 90; O2SAT 97
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
--- NOTE | 2020-06-29 18:25 | XRAY ---
Indication: Nausea, vomiting, and dizziness. Multiple contiguous axial images obtained through the head without contrast. Comparison: None Age-appropriate global atrophy and minimal periventricular degenerative microvascular ischemia. No acute intracranial hemorrhage, abnormal extra-axial fluid collection, or mass effect. Fourth ventricle is midline without hydrocephalus. Bony calvarium intact. Visualized paranasal sinuses and mastoid air cells are clear. Impression: Nonacute senile brain. Comment: Preliminary interpretation was made by [facility]. No critical discrepancy.
--- NOTE | 2020-06-29 18:27 | XRAY ---
Indication: Nausea, vomiting, and dizziness. Comparison: None 2 view abdomen demonstrates nonspecific nonobstructed bowel gas pattern. Several right abdominal suture material. No large free air. Splenic calcific granulomas. Remaining solid organs are unremarkable. 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 Single PA chest demonstrates normal heart and lungs with incidental right hemidiaphragm elevation. Bony thorax intact with mild osteopenia, degenerative changes, and bilateral total shoulder arthroplasty. Impression: Nonacute nonobstructed abdomen with chronic features. Nonacute one view chest with chronic features. Comment: Preliminary interpretation was made by [facility]. No critical discrepancy.
== END 2020-06-29 16:49 | disposition left against medical advice (07) ==
LOC: ED 14:11
DX: E87.1 Hypo-osmolality and hyponatremia (principal); R42 Dizziness and giddiness; R11.2 Nausea with vomiting, unspecified; M06.9 Rheumatoid arthritis, unspecified; I10 Essential (primary) hypertension; E78.5 Hyperlipidemia, unspecified; G40.909 Epilepsy, unspecified, not intractable, without status epilepticus; R53.81 Other malaise; R53.1 Weakness; Z79.899 Other long term (current) drug therapy
CPT/HCPCS: 36000; 36415; 70450; 74022; 80053; 81001; 82150; 83605; 83690; 84484; 85025; 87040; 93005; 96360; 96361; 96374; 99284; J2405; A9270-GY

== ENCOUNTER 2020-08-11 10:33 | Emergency (ER) | payer MEDICARE ==
--- NOTE | 2020-08-11 12:52 | XRAY ---
Indication: Pain. No acute injury. Multiple contiguous axial images obtained through the cervical spine. Sagittal and coronal reformatted images obtained. Comparison: January 11, 2020. Again age-related osteopenia and tiny bone island right 1st rib. Axial images remain negative for acute fracture or suspicious bony lesions. Grossly stable mild/moderate C3-C7 degenerative endplate spurring, atlantoaxial degenerative arthropathy, and bilateral degenerative facet hypertrophy. Sagittal and coronal reformatted images again demonstrates C3-C7 disc space loss with minimal C7 anterolisthesis on T1. Again no acute compression fracture, new subluxation, or jumped facet. Normal-appearing craniocervical junction. Visualized noncontrasted soft tissues including base of the brain and lung apices are unremarkable. Impression: Stable CT cervical spine again demonstrating osteopenia and multilevel degenerative changes. No new/acute findings.
--- NOTE | 2020-08-11 12:56 | XRAY ---
Indication: Pain. No known injury. Multiple contiguous axial images obtained through the lumbar spine. Sagittal and coronal reformatted images obtained. Comparison: CT abdomen/pelvis November 12, 2019. Osseous structures remain demineralized consistent with patient's age. No acute fracture or suspicious bony lesions. Grossly stable moderate/advanced multilevel degenerative spondylosis throughout the visualized thoracolumbar spine and stable T11 Schmorl node. Sagittal and coronal reformatted images again demonstrates grossly stable moderate dextrorotoscoliosis centered at L2. No acute compression fracture or subluxation. Visualized noncontrasted soft tissues again demonstrates scattered aortoiliac calcifications without AAA, nonobstructing bilateral renal micro-calculi, and partially visualized bowel resection. Impression: Grossly stable osteopenia, multilevel degenerative spondylosis, dextrorotoscoliosis, T11 Schmorl node, and incidental soft tissue findings. No new/acute findings.
[2020-08-11] MEDS ORDERED: TORAdol 30 mg Injection IM ONE (13:03)
[2020-08-11] MEDS ORDERED: TORAdol 30 mg Injection ONE (13:03)
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
[2020-08-11 13:21] VITALS: BP 120/71; PULSE 82
[2020-08-11 13:24] VITALS: O2SAT 98
== END 2020-08-11 13:12 | disposition home or self-care (01) ==
LOC: ED 10:33
DX: M54.5 Low back pain (principal); M54.2 Cervicalgia; Z79.899 Other long term (current) drug therapy; G40.909 Epilepsy, unspecified, not intractable, without status epilepticus
CPT/HCPCS: 72125; 72131; 96372; 99284; J1885

== ENCOUNTER 2020-11-06 06:59 | Emergency (ER) | payer MEDICARE ==
[2020-11-06] MEDS ORDERED: TORAdol 30 mg Injection IM ONE (07:25)
[2020-11-06] MEDS ORDERED: TORAdol 30 mg Injection ONE (07:27)
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
[2020-11-06 08:24] VITALS: BP 161/90; PULSE 78; O2SAT 98
--- NOTE | 2020-11-06 09:38 | XRAY ---
Indication: Pain and swelling. Comparison: None 3 view left wrist demonstrates osteopenia and radiocarpal degenerative joint space narrowing. Minimal widened scapholunate interval concerning for underlying ligamentous tear. No other bony, articular, or soft tissue abnormalities.
== END 2020-11-06 08:23 | disposition home or self-care (01) ==
LOC: ED 06:59
DX: M25.532 Pain in left wrist (principal); X50.3XXA Overexertion from repetitive movements, initial encounter; Y99.8 Other external cause status; M77.9 Enthesopathy, unspecified
CPT/HCPCS: 73110; 96372; 99284; J1885

== ENCOUNTER 2020-12-31 08:52 | Emergency (ER) | payer MEDICARE ==
--- NOTE | 2020-12-31 09:39 | XRAY ---
Indication: Swelling. Comparison: None 3 view left ankle demonstrates a few tiny medial malleolus tip heterotopic ossifications presumed degenerative versus old injury. Moderate scattered vascular calcifications. No other bony, articular, or soft tissue abnormalities.
[2020-12-31 09:42] LABS: Absolute Neutrophil Ct (ANC) 6.15 (1.4-6.9); BASOPHIL % 0.3 % (0.0-0.4); Basophil (Absolute #) 0.02 (0-0.4); Eosinophil % 0.1 % (0.00-5.0); Eosinophil (Absolute #) 0.01 (0-0.5); Hematocrit 32.1 % (42-50); Hemoglobin 9.1 gm/dl (12.5-18.0); Lymphocyte (Absolute #) 0.95 (1.0-4.6); Lymphocytes % 12.4 % (24.0-44.0); Mean Cell Volume 88.4 fl (78-100); Mean Corpuscular Hemoglobin 25.1 pg (26-32); Mean Corpuscular Hgb Concent. 28.3 g/dl (32-36); Mean Platelet Volume 8.5 fl (7.5-11.0); Monocyte (Absolute #) 0.51 (0.0-1.3); Monocytes % 6.7 % (0.0-12.0); Neutrophil % 80.5 % (36.0-66.0); Platelet Count 251 K/mm3 (150-450); Red Blood Count 3.63 M/mm3 (4.1-5.6); Red Cell Distribution Width 15.7 % (11.5-14.0); White Blood Count 7.6 K/mm3 (4.0-10.5)
[2020-12-31 09:52] LABS: ALBUMIN 3.3 g/dL (3.5-5.0); ALKALINE PHOSPHATASE 78 U/L (38-126); BLOOD UREA NITROGEN 21 mg/dL (9-20); CHLORIDE 103 mmol/L (98-107); Calcium 8.4 mg/dL (8.4-10.2); Carbon Dioxide 31 mmol/L (22-30); Creatinine 1 0.79 mg/dL (0.66-1.25); EST GLOMERULAR FILTRATION RATE > 60.0 ML/MIN; Glucose 91 mg/dL (74-106); Potassium 3.7 mmol/L (3.5-5.1); SGOT/AST 25 U/L (17-59); SGPT/ALT 19 U/L (0-50); SODIUM 139 mmol/L (137-145); Total Protein 5.9 g/dL (6.3-8.2)
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
[2020-12-31 10:55] VITALS: BP 134/75; PULSE 64; O2SAT 98
== END 2020-12-31 11:09 | disposition home or self-care (01) ==
LOC: ED 08:52
DX: M19.90 Unspecified osteoarthritis, unspecified site (principal); M06.9 Rheumatoid arthritis, unspecified; M25.572 Pain in left ankle and joints of left foot; M25.472 Effusion, left ankle
CPT/HCPCS: 36415; 73610; 80053; 84550; 85025; 85652; 86140; 99283

== ENCOUNTER 2021-01-31 09:50 | Emergency (ER) | payer MEDICARE ==
[2021-01-31 10:57] VITALS: BP 156/91
[2021-01-31] MEDS ORDERED: Kenalog-40 IM ONE (11:03)
[2021-01-31] MEDS ORDERED: Kenalog-40 ONE (11:04)
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
[2021-01-31 11:12] VITALS: PULSE 90; O2SAT 98
== END 2021-01-31 11:44 | disposition home or self-care (01) ==
LOC: ED 09:50
DX: M13.832 Other specified arthritis, left wrist (principal); X50.0XXA Overexertion from strenuous movement or load, initial encounter; Y93.H2 Activity, gardening and landscaping
CPT/HCPCS: 96372; 99283; J3301

== ENCOUNTER 2021-05-19 08:56 | Emergency (ER) | payer MEDICARE ==
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
[2021-05-19 09:46] LABS: Absolute Neutrophil Ct (ANC) 6.53 (1.4-6.9); BASOPHIL % 0.5 % (0.0-0.4); Basophil (Absolute #) 0.04 (0-0.4); Eosinophil (Absolute #) 0.08 (0-0.5); Hematocrit 30.8 % (42-50); Hemoglobin 8.9 gm/dl (12.5-18.0); Lymphocyte (Absolute #) 1.13 (1.0-4.6); Lymphocytes % 13.6 % (24.0-44.0); Mean Corpuscular Hemoglobin 25.1 pg (26-32); Mean Corpuscular Hgb Concent. 28.9 g/dl (32-36); Mean Platelet Volume 8.4 fl (7.5-11.0); Monocyte (Absolute #) 0.52 (0.0-1.3); Monocytes % 6.3 % (0.0-12.0); Neutrophil % 78.6 % (36.0-66.0); Platelet Count 278 K/mm3 (150-450); Red Blood Count 3.54 M/mm3 (4.1-5.6); Red Cell Distribution Width 15.8 % (11.5-14.0); White Blood Count 8.3 K/mm3 (4.0-10.5)
[2021-05-19 10:00] LABS: ALBUMIN 3.1 g/dL (3.5-5.0); ALKALINE PHOSPHATASE 77 U/L (38-126); ANION GAP 8.5 MEQ/L (5-15); BLOOD UREA NITROGEN 14 mg/dL (9-20); CHLORIDE 109 mmol/L (98-107); Calcium 8.8 mg/dL (8.4-10.2); Carbon Dioxide 28 mmol/L (22-30); Creatinine 1 0.87 mg/dL (0.66-1.25); EST GLOMERULAR FILTRATION RATE > 60.0 ML/MIN; Glucose 87 mg/dL (74-106); Potassium 4.1 mmol/L (3.5-5.1); SGOT/AST 32 U/L (17-59); SGPT/ALT 29 U/L (0-50); SODIUM 141 mmol/L (137-145); Total Protein 5.6 g/dL (6.3-8.2)
--- NOTE | 2021-05-19 10:00 | XRAY ---
Indication: Cough. Comparison: June 29, 2020. Portable chest demonstrates new subtle right suprahilar and left base interstitial alveolar opacities. Remaining heart and lungs unremarkable again with chronic right hemidiaphragm elevation. Bony thorax intact again with osteopenia, degenerative changes, scoliosis, and bilateral shoulder arthroplasty.
[2021-05-19 10:25] LABS: Slide Review 1 YES
[2021-05-19 10:29] LABS: INFLUENZA A NEGATIVE (NEGATIVE); INFLUENZA B NEGATIVE (NEGATIVE); RESPIRATORY SYNCTIAL VIRUS NEGATIVE (Negative); SARS-CoV-2 Xpert Express NEGATIVE (NEGATIVE)
[2021-05-19 11:48] VITALS: BP 130/71; PULSE 75; O2SAT 94
== END 2021-05-19 11:30 | disposition home or self-care (01) ==
LOC: ED 08:56
DX: J18.9 Pneumonia, unspecified organism (principal); J02.9 Acute pharyngitis, unspecified; R05.9 Cough, unspecified; R09.81 Nasal congestion; I10 Essential (primary) hypertension; Z79.899 Other long term (current) drug therapy
CPT/HCPCS: 0241U; 36415; 71045; 80053; 83605; 84484; 85025; 87651; 93005; 99284

== ENCOUNTER 2021-05-23 06:16 | Emergency (ER) | payer MEDICARE ==
[2021-05-23 06:23] VITALS: BP 160/91; PULSE 95; O2SAT 97
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
== END 2021-05-23 07:06 | disposition home or self-care (01) ==
LOC: ED 06:16
DX: J18.9 Pneumonia, unspecified organism (principal); I10 Essential (primary) hypertension; Z79.52 Long term (current) use of systemic steroids; Z79.899 Other long term (current) drug therapy
CPT/HCPCS: 99283

== ENCOUNTER 2021-07-23 11:07 | Emergency (ER) | payer MEDICARE ==
[2021-07-23] MEDS ORDERED: TORAdol 30 mg Injection IM ONE (11:16)
[2021-07-23] MEDS ORDERED: TORAdol 30 mg Injection ONE (11:19)
[2021-07-23 11:22] VITALS: BP 137/71; PULSE 92; O2SAT 99
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
== END 2021-07-23 11:57 | disposition home or self-care (01) ==
LOC: ED 11:07
DX: M06.9 Rheumatoid arthritis, unspecified (principal); M25.532 Pain in left wrist; M25.531 Pain in right wrist; M79.642 Pain in left hand; M79.641 Pain in right hand; I10 Essential (primary) hypertension; Z86.718 Personal history of other venous thrombosis and embolism; K21.9 Gastro-esophageal reflux disease without esophagitis; Z79.52 Long term (current) use of systemic steroids; Z79.899 Other long term (current) drug therapy
CPT/HCPCS: 96372; 99283; J1885

== ENCOUNTER 2021-07-26 17:47 | Emergency (ER) | payer MEDICARE ==
[2021-07-26 18:08] VITALS: BP 131/73; PULSE 81; O2SAT 95
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
[2021-07-26] MEDS ORDERED: NORCO 5/325 MG PO ONE (18:28)
[2021-07-26] MEDS ORDERED: NORCO 5/325 MG ONE (18:30)
== END 2021-07-26 18:40 | disposition home or self-care (01) ==
LOC: ED 17:47
DX: M79.671 Pain in right foot (principal); I10 Essential (primary) hypertension; K21.9 Gastro-esophageal reflux disease without esophagitis; Z86.718 Personal history of other venous thrombosis and embolism; Z79.52 Long term (current) use of systemic steroids; Z79.899 Other long term (current) drug therapy
CPT/HCPCS: 99283; A9270-GY

== ENCOUNTER 2021-08-20 12:40 | Emergency (ER) | payer MEDICARE ==
[2021-08-20] MEDS ORDERED: Norflex 60 MG/2 ML IM ONE (13:28)
[2021-08-20] MEDS ORDERED: Norflex 60 MG/2 ML ONE (13:28)
[2021-08-20 13:59] VITALS: O2SAT 96
[2021-08-20 14:06] VITALS: BP 131/73; PULSE 78
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
== END 2021-08-20 14:21 | disposition home or self-care (01) ==
LOC: ED 12:40
DX: M79.604 Pain in right leg (principal); G89.29 Other chronic pain; Z96.641 Presence of right artificial hip joint; I10 Essential (primary) hypertension; K21.9 Gastro-esophageal reflux disease without esophagitis; Z79.52 Long term (current) use of systemic steroids; Z79.899 Other long term (current) drug therapy
CPT/HCPCS: 96372; 99283; J2360

== ENCOUNTER 2021-08-21 12:57 | Emergency (ER) | payer MEDICARE ==
[2021-08-21] MEDS ORDERED: TORAdol 30 mg Injection IM ONE (13:35)
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
--- NOTE | 2021-08-21 13:54 | XRAY ---
Indication: Pain. Comparison: February 23, 2020. 2 view right hip demonstrates interval total hip arthroplasty with intact bipolar prosthesis/acetabular screw. Stable osteopenia, lower lumbar degenerative changes, and right lower quadrant suture material. No other bony, articular, or soft tissue abnormalities.
[2021-08-21] MEDS ORDERED: TORAdol 30 mg Injection ONE (13:56)
[2021-08-21 14:05] VITALS: BP 189/79; PULSE 87
[2021-08-21 14:06] VITALS: O2SAT 98
== END 2021-08-21 14:22 | disposition home or self-care (01) ==
LOC: ED 12:57
DX: M54.31 Sciatica, right side (principal); G89.29 Other chronic pain; I10 Essential (primary) hypertension; K21.9 Gastro-esophageal reflux disease without esophagitis; Z79.891 Long term (current) use of opiate analgesic; Z79.52 Long term (current) use of systemic steroids; Z79.899 Other long term (current) drug therapy
CPT/HCPCS: 73502; 96372; 99284; J1885

== ENCOUNTER 2021-08-23 13:12 | Emergency (ER) | payer MEDICARE ==
[2021-08-23 13:26] VITALS: BP 149/78
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
[2021-08-23] MEDS ORDERED: TORAdol 30 mg Injection ONE (15:10)
[2021-08-23] MEDS ORDERED: TORAdol 30 mg Injection IM ONE (15:11)
[2021-08-23 15:38] VITALS: PULSE 60; O2SAT 98
--- NOTE | 2021-08-23 20:17 | XRAY ---
Indication: Low back and right leg pain 3 weeks. Multiple contiguous axial images obtained through the lumbar spine. Sagittal and coronal reformatted images obtained. Comparison: August 11, 2020. Again age-related osteopenia, moderate/advanced multilevel thoracolumbar degenerative spondylosis, moderate dextrorotoscoliosis centered at L2, and remote superior T11 endplate fracture. No acute fracture, subluxation, or suspicious bony lesions. Visualized noncontrasted soft tissues again demonstrates scattered aortoiliac calcifications and nonobstructing bilateral renal micro-calculi. Impression: Continued nonacute CT lumbar spine again with chronic features. Comment: Preliminary interpretation made by [facility]. No critical discrepancy.
== END 2021-08-23 15:38 | disposition home or self-care (01) ==
LOC: ED 13:12
DX: M54.50 Low back pain, unspecified (principal); G89.29 Other chronic pain; I10 Essential (primary) hypertension; K21.9 Gastro-esophageal reflux disease without esophagitis; Z79.891 Long term (current) use of opiate analgesic; Z79.01 Long term (current) use of anticoagulants; Z79.899 Other long term (current) drug therapy
CPT/HCPCS: 72131; 96372; 99284; J1885

== ENCOUNTER 2021-09-02 09:41 | Emergency (ER) | payer MEDICARE ==
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
[2021-09-02] MEDS ORDERED: Hydromorphone 1 mg/ml Injection IM ONE (10:43)
[2021-09-02] MEDS ORDERED: Norflex 60 MG/2 ML IM ONE (10:43)
[2021-09-02] MEDS ORDERED: ZOFRAN ODT 4 MG PO ONE (10:43)
[2021-09-02] MEDS ORDERED: solu-MEDROL 125 MG, Sterile H2O 10 ml 2 ML IM ONE ×2 (10:44)
[2021-09-02] MEDS ORDERED: Sterile H2O 10 ml IJ ONE (11:17)
[2021-09-02] MEDS ORDERED: solu-MEDROL ONE (11:17)
[2021-09-02 11:25] VITALS: BP 134/89; PULSE 72; O2SAT 98
== END 2021-09-02 11:28 | disposition home or self-care (01) ==
LOC: ED 09:41
DX: G89.29 Other chronic pain (principal); M25.551 Pain in right hip; I10 Essential (primary) hypertension; K21.9 Gastro-esophageal reflux disease without esophagitis; Z86.718 Personal history of other venous thrombosis and embolism; Z79.891 Long term (current) use of opiate analgesic; Z79.899 Other long term (current) drug therapy; Z79.52 Long term (current) use of systemic steroids
CPT/HCPCS: 96372; 99283; J2930

== ENCOUNTER 2021-09-03 05:49 | Emergency (ER) | payer MEDICARE ==
[2021-09-03] MEDS ORDERED: NORCO 5/325 MG PO ONE (06:38)
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
[2021-09-03] MEDS ORDERED: NORCO 5/325 MG ONE (06:48)
[2021-09-03 06:52] VITALS: BP 151/84; PULSE 84; O2SAT 98
== END 2021-09-03 07:06 | disposition home or self-care (01) ==
LOC: ED 05:49
DX: G89.29 Other chronic pain (principal); M25.551 Pain in right hip; I10 Essential (primary) hypertension; K21.9 Gastro-esophageal reflux disease without esophagitis; Z86.718 Personal history of other venous thrombosis and embolism; Z79.899 Other long term (current) drug therapy; Z79.52 Long term (current) use of systemic steroids
CPT/HCPCS: 99283; A9270-GY

== ENCOUNTER 2021-09-07 06:35 | Emergency (ER) | payer MEDICARE ==
[2021-09-07 06:52] VITALS: BP 158/77; PULSE 90; O2SAT 99
[2021-09-07] MEDS ORDERED: DECADRON 10MG INJ. IM ONE (07:15)
[2021-09-07] MEDS ORDERED: TORAdol 30 mg Injection IM ONE (07:15)
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
[2021-09-07] MEDS ORDERED: TORAdol 30 mg Injection ONE (07:26)
[2021-09-07] MEDS ORDERED: DECADRON 10MG INJ. ONE (07:26)
== END 2021-09-07 07:41 | disposition home or self-care (01) ==
LOC: ED 06:35
DX: G89.29 Other chronic pain (principal); M25.551 Pain in right hip; I10 Essential (primary) hypertension; K21.9 Gastro-esophageal reflux disease without esophagitis; Z86.718 Personal history of other venous thrombosis and embolism; Z79.899 Other long term (current) drug therapy; Z79.52 Long term (current) use of systemic steroids; Z79.01 Long term (current) use of anticoagulants; Z79.891 Long term (current) use of opiate analgesic
CPT/HCPCS: 96372; 99283; J1100; J1885

== ENCOUNTER 2021-09-10 07:53 | Emergency (ER) | payer MEDICARE ==
[2021-09-10 08:04] VITALS: BP 133/61; O2SAT 98
[2021-09-10] MEDS ORDERED: PERCOCET TABLET 5/325MG PO ONE (08:15)
[2021-09-10] MEDS ORDERED: PERCOCET TABLET 5/325MG ONE (08:21)
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
[2021-09-10 08:34] VITALS: PULSE 82
== END 2021-09-10 08:42 | disposition home or self-care (01) ==
LOC: ED 07:53
DX: G89.29 Other chronic pain (principal); M25.551 Pain in right hip; I10 Essential (primary) hypertension; K21.9 Gastro-esophageal reflux disease without esophagitis; Z86.718 Personal history of other venous thrombosis and embolism; Z79.01 Long term (current) use of anticoagulants; Z79.891 Long term (current) use of opiate analgesic; Z79.52 Long term (current) use of systemic steroids; Z79.899 Other long term (current) drug therapy
CPT/HCPCS: 99283; A9270-GY

== ENCOUNTER 2021-09-18 04:19 | Emergency (ER) | payer MEDICARE ==
[2021-09-18] MEDS ORDERED: TORAdol 30 mg Injection ONE (04:38)
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
[2021-09-18] MEDS ORDERED: TORAdol 30 mg Injection IM ONE (04:47)
[2021-09-18] MEDS ORDERED: DECADRON 10MG INJ. IM ONE (04:47)
[2021-09-18] MEDS ORDERED: DECADRON 10MG INJ. ONE (04:47)
[2021-09-18 05:09] VITALS: BP 141/74; PULSE 68; O2SAT 98
== END 2021-09-18 05:13 | disposition home or self-care (01) ==
LOC: ED 04:19
DX: G89.29 Other chronic pain (principal); M25.551 Pain in right hip; I10 Essential (primary) hypertension; K21.9 Gastro-esophageal reflux disease without esophagitis; Z79.01 Long term (current) use of anticoagulants; Z79.52 Long term (current) use of systemic steroids; Z79.891 Long term (current) use of opiate analgesic; Z79.899 Other long term (current) drug therapy
CPT/HCPCS: 96372; 99284; J1100; J1885

== ENCOUNTER 2021-10-12 09:02 | Emergency (ER) | payer MEDICARE ==
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
== END 2021-10-12 09:14 | disposition left against medical advice (07) ==
LOC: ED 09:02
DX: Z53.21 Procedure and treatment not carried out due to patient leaving prior to being seen by health care provider (principal)
CPT/HCPCS: 99281

== ENCOUNTER 2021-10-15 17:45 | Observation (INO) | payer MEDICARE ==
[2021-10-15] MEDS ORDERED: Zofran 4 MG/2 ML VIAL IV ONE (18:03)
[2021-10-15] MEDS ORDERED: Sodium Chloride 0.9% 1000 ML 1,000 ML ONE (18:03)
[2021-10-15] MEDS ORDERED: MORPHINE SULFATE 4 MG INJ IV ONE ×2 (18:03→18:54)
[2021-10-15] MEDS ORDERED: MORPHINE SULFATE 4 MG INJ ONE ×2 (18:03→18:55)
[2021-10-15] MEDS ORDERED: Zofran 4 MG/2 ML VIAL ONE (18:03)
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
[2021-10-15] MEDS ORDERED: Sodium Chloride 0.9% 1000 ML 1,000 ML IV SCH ×2 (18:15→21:04)
[2021-10-15 18:17] LABS: Absolute Neutrophil Ct (ANC) 7.05 x10^3/uL (1.4-6.9); Basophil (Absolute #) 0.03 x10^3/uL (0-0.4); Eosinophil % 0.1 % (0.00-5.0); Eosinophil (Absolute #) 0.01 x10^3/uL (0-0.5); Hematocrit 32.2 % (42-50); Hemoglobin 9.5 g/dL (12.5-18.0); Lymphocyte (Absolute #) 1.41 x10^3/uL (1.0-4.6); Lymphocytes % 15.8 % (24.0-44.0); Mean Cell Volume 81.3 fL (78-100); Mean Corpuscular Hgb Concent. 29.5 g/dL (32-36); Mean Platelet Volume 9.4 fL (7.5-11.0); Monocyte (Absolute #) 0.38 x10^3/uL (0.0-1.3); Monocytes % 4.3 % (0.0-12.0); Neutrophil % 79.1 % (36.0-66.0); Platelet Count 287 x10^3/uL (150-450); Red Blood Count 3.96 x10^6/uL (4.1-5.6); Red Cell Distribution Width 16.9 % (11.5-14.0); White Blood Count 8.9 x10^3/uL (4.0-10.5)
[2021-10-15 18:18] LABS: Appearance CLEAR (CLEAR); Bilirubin NEGATIVE (NEGATIVE); Glucose NEGATIVE (NEGATIVE); Ketones NEGATIVE (NEGATIVE); Specific Gravity 1.015 (1.005-1.025)
[2021-10-15 18:19] LABS: Dipstick done @ ? MAIN LAB; Nitrite NEGATIVE (NEGATIVE); Protein,Urine Dip NEGATIVE (Negative); RBC NEGATIVE Ery/ul (0-5); Urobilinogen 0.2 mg/dL (0-1)
[2021-10-15 18:29] LABS: ALBUMIN 3.7 g/dL (3.5-5.0); ALKALINE PHOSPHATASE 87 U/L (38-126); ANION GAP 14.9 MEQ/L (5-15); BLOOD UREA NITROGEN 23 mg/dL (9-20); CHLORIDE 100 mmol/L (98-107); Calcium 9.5 mg/dL (8.4-10.2); Carbon Dioxide 28 mmol/L (22-30); Creatinine 1 0.92 mg/dL (0.66-1.25); EST GLOMERULAR FILTRATION RATE > 60.0 ML/MIN; Glucose 114 mg/dL (74-106); LIPASE 69 U/L (23-300); Potassium 4.9 mmol/L (3.5-5.1); SGOT/AST 25 U/L (17-59); SGPT/ALT 19 U/L (0-50); SODIUM 138 mmol/L (137-145); Total Protein 6.2 g/dL (6.3-8.2)
[2021-10-15 18:30] LABS: Mucus SLIGHT /HPF (NEGATIVE); RBC 0-2 /HPF (0-2)
[2021-10-15 18:31] LABS: Urine Cultured Indicated? NO
[2021-10-15 19:53] LABS: INFLUENZA A NEGATIVE (NEGATIVE); INFLUENZA B NEGATIVE (NEGATIVE); RESPIRATORY SYNCTIAL VIRUS NEGATIVE (Negative); SARS-CoV-2 Xpert Express NEGATIVE (NEGATIVE)
[2021-10-15] MEDS ORDERED: Zofran 4 MG/2 ML VIAL IV PRN (21:04)
[2021-10-15] MEDS ORDERED: MORPHINE SULFATE 4 MG INJ IV PRN (21:04)
[2021-10-15] MEDS ORDERED: Pepcid 20 MG PO SCH (22:55)
[2021-10-15] MEDS ORDERED: DELTASONE 10 MG PO SCH (22:55)
[2021-10-16 05:20] LABS: Absolute Neutrophil Ct (ANC) 7.03 x10^3/uL (1.4-6.9); Basophil (Absolute #) 0.03 x10^3/uL (0-0.4); Eosinophil % 0.1 % (0.00-5.0); Eosinophil (Absolute #) 0.01 x10^3/uL (0-0.5); Hematocrit 29.4 % (42-50); Hemoglobin 8.4 g/dL (12.5-18.0); Lymphocyte (Absolute #) 0.58 x10^3/uL (1.0-4.6); Lymphocytes % 7.3 % (24.0-44.0); Mean Corpuscular Hgb Concent. 28.6 g/dL (32-36); Mean Platelet Volume 9.3 fL (7.5-11.0); Monocyte (Absolute #) 0.26 x10^3/uL (0.0-1.3); Monocytes % 3.3 % (0.0-12.0); Neutrophil % 88.5 % (36.0-66.0); Platelet Count 227 x10^3/uL (150-450); White Blood Count 7.9 x10^3/uL (4.0-10.5)
[2021-10-16 05:44] LABS: ALBUMIN 3.2 g/dL (3.5-5.0); ALKALINE PHOSPHATASE 69 U/L (38-126); ANION GAP 7.6 MEQ/L (5-15); BLOOD UREA NITROGEN 17 mg/dL (9-20); CHLORIDE 103 mmol/L (98-107); Calcium 8.6 mg/dL (8.4-10.2); Carbon Dioxide 29 mmol/L (22-30); Creatinine 1 0.77 mg/dL (0.66-1.25); EST GLOMERULAR FILTRATION RATE > 60.0 ML/MIN; Glucose 111 mg/dL (74-106); SGOT/AST 23 U/L (17-59); SGPT/ALT 16 U/L (0-50); SODIUM 135 mmol/L (137-145); Total Protein 5.7 g/dL (6.3-8.2)
[2021-10-16 07:17] LABS: Slide Review 1 YES
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
--- NOTE | 2021-10-16 08:55 | XRAY ---
Indication: Abdomen pain and tightness. Multiple contiguous axial images obtained through the abdomen and pelvis without contrast. Comparison: November 12, 2019. Lung bases demonstrates minimal bibasilar dependent atelectasis with stable tiny calcified granulomas. No infiltrate or effusion. Heart not enlarged. New small hiatal hernia. Interval right total hip arthroplasty with beam artifact from bipolar prosthesis. Stomach and small/large bowel loops are now moderately fluid distended throughout with fluid leveling either ileus versus gastroenterocolitis. Intact sigmoid anastomosis. No free fluid/air. Again a few nonobstructing bilateral micro-calculi and tiny splenic calcified granulomas. Right UVJ demonstrates minimally enlarging 8 mm calcification without hydronephrosis or hydroureter. Suspect calcification is external to system. Remaining liver, gallbladder, pancreas, spleen, adrenal glands, kidneys, ureters, and bladder are unremarkable for noncontrast exam. There remains mild scattered aortoiliac calcification without AAA. Osseous structures intact again with osteopenia, moderate/advanced degenerative changes throughout the thoracolumbar spine, and dextroscoliosis centered at thoracolumbar junction. T11 segment demonstrates new remote-appearing superior endplate fracture with 25-50% height loss. Impression: 1. New beam artifact from right total hip arthroplasty. 2. New fluid distended stomach and small/large bowel loops with fluid leveling, ileus versus gastroenterocolitis. 3. New small hiatal hernia and remote T11 endplate fracture. 4. Chronic findings including nonobstructing bilateral renal micro-calculi, arteriosclerotic disease, chronic bony findings, and old granulomatous disease.
[2021-10-16 09:09] VITALS: BP 152/74; PULSE 75; O2SAT 97
[2021-10-16] MEDS ORDERED: PROTONIX 40 MG IV IV SCH (10:00)
--- NOTE | 2021-10-19 20:49 | PCM.DS ---
Discharge Summary Date of Admission: 10/15/21 21:02 Admitting Physician: SUKHDEEP DUBOIS Primary Care Provider: SUKHDEEP DUBOIS Allergies Allergies sulfamethoxazole [From Bactrim] Allergy (Verified 10/15/21 17:54) trimethoprim [From Bactrim] Allergy (Verified 10/15/21 17:54) Hospital Summary - Hospital Course Hospital Course: Chief Complaint Diagnosis abdominal pain and distension for 2-3 days Allergies Allergy/AdvReac Type Severity Reaction Status Date / Time sulfamethoxazole Allergy Verified 10/15/21 17:54 [From Bactrim] trimethoprim [From Bactrim] Allergy Verified 10/15/21 17:54 Current Medications Discontinued Medications Generic Name Dose Route Start Last Admin Trade Name Freq PRN Reason Stop Dose Admin Famotidine 20 mg 10/15/21 22:55 10/15/21 23:01 Famotidine 20 Mg Tablet PO 11/14/21 22:54 20 mg BID MOHAN Administration Sodium Chloride Confirm 10/15/21 18:03 Sodium Chloride 0.9% 1000 Ml Administered 10/15/21 18:04 Dose 1,000 mls @ ud .ROUTE .STK-MED ONE Sodium Chloride 1,000 mls @ 250 mls/hr 10/15/21 18:15 10/15/21 18:12 Sodium Chloride 0.9% 1000 Ml IV 11/14/21 18:14 250 mls/hr .Q4H MOHAN Administration Sodium Chloride 1,000 mls @ 100 mls/hr 10/15/21 21:04 10/15/21 21:13 Sodium Chloride 0.9% 1000 Ml IV 11/14/21 21:03 100 mls/hr .Q10H MOHAN Administration Morphine Sulfate Confirm 10/15/21 18:03 Morphine Sulfate 4 Mg/Ml Injection Administered 10/15/21 18:04 Dose 4 mg .ROUTE .STK-MED ONE Morphine Sulfate 4 mg 10/15/21 18:03 10/15/21 18:11 Morphine Sulfate 4 Mg/Ml Injection IV 10/15/21 18:04 4 mg STAT ONE Administration Morphine Sulfate 4 mg 10/15/21 18:54 10/15/21 18:56 Morphine Sulfate 4 Mg/Ml Injection IV 10/15/21 18:55 4 mg STAT ONE Administration Morphine Sulfate Confirm 10/15/21 18:55 Morphine Sulfate 4 Mg/Ml Injection Administered 10/15/21 18:56 Dose 4 mg .ROUTE .STK-MED ONE Morphine Sulfate 4 mg 10/15/21 21:04 10/15/21 22:11 Morphine Sulfate 4 Mg/Ml Injection IV 10/20/21 21:03 4 mg Q4H PRN PRN Administration PAIN Ondansetron HCl Confirm 10/15/21 18:03 Ondansetron Hcl 4 Mg/2 Ml Vial Administered 10/15/21 18:04 Dose 4 mg .ROUTE .STK-MED ONE Ondansetron HCl 4 mg 10/15/21 18:03 10/15/21 18:11 Ondansetron Hcl 4 Mg/2 Ml Vial IV 10/15/21 18:04 4 mg STAT ONE Administration Ondansetron HCl 4 mg 10/15/21 21:04 Ondansetron Hcl 4 Mg/2 Ml Vial IV 11/14/21 21:03 Q6H PRN PRN NAUSEA/VOMITING Pantoprazole Sodium 40 mg 10/16/21 10:00 Pantoprazole 40 Mg Vial IV 11/15/21 09:59 Q24H10 MOHAN Prednisone 10 mg 10/15/21 22:55 10/15/21 23:01 Prednisone 10 Mg Tablet PO 11/14/21 22:54 10 mg BID MOHAN Administration - Vitals & Intake/Output Vital Signs: Vital Signs Temperature 98.4 F 10/16/21 08:00 Pulse Rate 75 10/16/21 08:00 Respiratory Rate 21 10/16/21 08:00 Blood Pressure 152/74 10/16/21 08:00 O2 Sat by Pulse Oximetry 97 10/16/21 08:00 - Lab Result Diagrams: 10/16/21 04:40 10/16/21 04:40 Discharge Exam General Appearance: no apparent distress, alert Neurologic Exam: alert, oriented x 3, cooperative, normal mood/affect, nml cerebellar function, sensation nml, No motor deficits Eye Exam: PERRL, EOMI, eyes nml inspection Ears, Nose, Throat Exam: normal ENT inspection, pharynx normal, moist mucous membranes Neck Exam: normal inspection, non-tender, supple, full range of motion Respiratory Exam: normal breath sounds, lungs clear, No respiratory distress Cardiovascular Exam: regular rate/rhythm, normal heart sounds Gastrointestinal/Abdomen Exam: soft, No tenderness, No mass Male Genitalia Exam: deferred Rectal Exam: deferred Back Exam: normal inspection, normal range of motion, No CVA tenderness, No vertebral tenderness Extremity Exam: normal inspection, normal range of motion Skin Exam: normal color, warm, dry Final Diagnosis/Problem List - Final Discharge Diagnosis/Problem (1) Intractable abdominal pain Status: Resolved Code(s): R10.9 - UNSPECIFIED ABDOMINAL PAIN (2) Ileus Status: Resolved Code(s): K56.7 - ILEUS, UNSPECIFIED (3) Rheumatoid arthritis flare Status: Acute Code(s): M06.9 - RHEUMATOID ARTHRITIS, UNSPECIFIED (4) Osteoarthritis (arthritis due to wear and tear of joints) Status: Acute Code(s): M19.90 - UNSPECIFIED OSTEOARTHRITIS, UNSPECIFIED SITE - Discharge Discharge Date: 10/16/21 Disposition: Home, Self-Care Condition: Stable Prescriptions: Continue Multivitamin [Multi-Vitamin Daily] 1 ea PO DAILY Finasteride 5 mg [Proscar 5 MG] 5 mg DAILY Amlodipine Besylate 10 mg [Norvasc 10 MG] 10 mg PO DAILY Famotidine 20 mg [Pepcid 20 MG] 20 mg PO BID Eslicarbazepine Acetate [Aptiom] 600 mg PO BID B12/Levomefolate Calcium/B-6 [Foltx Tablet] 1 each PO DAILY Tamsulosin HCl [Flomax] 0.4 mg PO DAILY #7 cap.er.24h Rivaroxaban [Xarelto] 20 mg PO DAILY Prednisone 10 mg [Deltasone 10 mg] 10 mg PO BID Hydrocodone/Acetaminophen [Hydrocodone-Acetamin 10-325 mg] 1 tab PO BID Instructions: Acute Abdomen (Belly Pain), Adult (DC) Follow up with: SUKHDEEP DUBOIS MD [Primary Care Provider] - 10/22/21 3:30 pm Forms: Discharge Instructions
== END 2021-10-16 11:27 | disposition home health service (06) ==
LOC: ED 17:45 → MED SURG 21:02
PROVIDERS: ADMIT General Practice; ATTEND General Practice
DX: R10.9 Unspecified abdominal pain (principal); K56.7 Ileus, unspecified; M06.9 Rheumatoid arthritis, unspecified; I10 Essential (primary) hypertension; M19.90 Unspecified osteoarthritis, unspecified site; Z79.899 Other long term (current) drug therapy; Z20.828 Contact with and (suspected) exposure to other viral communicable diseases
CPT/HCPCS: 0241U; 36000; 36415; 74176; 80053; 81015; 83690; 84484; 85025; 96374; 96375; 99285; G0378; J2270; J2405; A9270-GY

== ENCOUNTER 2021-10-28 14:43 | Emergency (ER) | payer MEDICARE ==
[2021-10-28 14:52] VITALS: BP 151/70; PULSE 87; O2SAT 98
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
--- NOTE | 2021-10-28 15:34 | XRAY ---
Indication: Double vision. Multiple contiguous axial images obtained through the head without contrast. Comparison: June 29, 2020. Again age-appropriate global atrophy and mild periventricular degenerative micro-ischemia bilaterally. No acute intracranial hemorrhage, abnormal extra-axial fluid collection, or mass effect. Fourth ventricle is midline without hydrocephalus. Bony calvarium intact. Visualized paranasal sinuses and mastoid air cells are clear. Impression: Continued nonacute senile brain.
== END 2021-10-28 15:44 | disposition home or self-care (01) ==
LOC: ED 14:43
DX: H53.2 Diplopia (principal); I10 Essential (primary) hypertension; Z79.01 Long term (current) use of anticoagulants; Z79.52 Long term (current) use of systemic steroids; Z79.891 Long term (current) use of opiate analgesic; Z79.899 Other long term (current) drug therapy
CPT/HCPCS: 70450; 99283

== ENCOUNTER 2022-01-05 02:24 | Emergency (ER) | payer MEDICARE ==
[2022-01-05] MEDS ORDERED: Robitussin-Dm Syrup PO ONE (02:47)
[2022-01-05] MEDS ORDERED: Robitussin AC Syrup Unit Dose Cup ONE (02:53)
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
[2022-01-05 03:26] VITALS: BP 131/76; PULSE 69; O2SAT 97
== END 2022-01-05 03:26 | disposition home or self-care (01) ==
LOC: ED 02:24
DX: J40 Bronchitis, not specified as acute or chronic (principal); R05.1 Acute cough; I10 Essential (primary) hypertension; Z79.899 Other long term (current) drug therapy
CPT/HCPCS: 99281; A9270-GY

== ENCOUNTER 2022-04-19 13:38 | Emergency (ER) | payer MEDICARE ==
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
[2022-04-19 15:51] LABS: Appearance CLEAR (CLEAR); Bilirubin SMALL (NEGATIVE); Glucose NEGATIVE (NEGATIVE); Ketones SMALL-15 (NEGATIVE)
[2022-04-19 15:52] LABS: Dipstick done @ ? MAIN LAB; Nitrite NEGATIVE (NEGATIVE); Protein,Urine Dip 30 (Negative); RBC NEGATIVE Ery/ul (0-5); Urobilinogen 0.2 mg/dL (0-1)
[2022-04-19 16:08] LABS: Absolute Neutrophil Ct (ANC) 6.71 x10^3/uL (1.4-6.9); Basophil (Absolute #) 0.03 x10^3/uL (0-0.4); Eosinophil % 0.2 % (0.00-5.0); Eosinophil (Absolute #) 0.02 x10^3/uL (0-0.5); Hematocrit 33.8 % (42-50); Hemoglobin 9.8 g/dL (12.5-18.0); Lymphocyte (Absolute #) 0.88 x10^3/uL (1.0-4.6); Lymphocytes % 10.6 % (24.0-44.0); Mean Cell Volume 87.1 fL (78-100); Mean Corpuscular Hemoglobin 25.3 pg (26-32); Mean Platelet Volume 9.2 fL (7.5-11.0); Monocyte (Absolute #) 0.66 x10^3/uL (0.0-1.3); Monocytes % 7.9 % (0.0-12.0); Neutrophil % 80.5 % (36.0-66.0); Platelet Count 181 x10^3/uL (150-450); Red Blood Count 3.88 x10^6/uL (4.1-5.6); Red Cell Distribution Width 16.6 % (11.5-14.0); White Blood Count 8.3 x10^3/uL (4.0-10.5)
[2022-04-19 16:17] LABS: Epithelial Cells RARE /HPF (FEW); Hyaline Casts 0-2 /LPF (0-2); Mucus SLIGHT /HPF (NEGATIVE); RBC 0-2 /HPF (0-2); WBC 0-2 /HPF (0-5)
[2022-04-19 16:18] LABS: ALBUMIN 3.5 g/dL (3.5-5.0); ALKALINE PHOSPHATASE 96 U/L (38-126); ANION GAP 6.2 MEQ/L (5-15); BLOOD UREA NITROGEN 20 mg/dL (9-20); CHLORIDE 100 mmol/L (98-107); Calcium 8.5 mg/dL (8.4-10.2); Carbon Dioxide 31 mmol/L (22-30); EST GLOMERULAR FILTRATION RATE > 60.0 ML/MIN; Glucose 74 mg/dL (74-106); SGOT/AST 27 U/L (17-59); SGPT/ALT 23 U/L (0-50); SODIUM 133 mmol/L (137-145); Total Protein 6.2 g/dL (6.3-8.2)
[2022-04-19 16:22] LABS: Urine Cultured Indicated? NO
--- NOTE | 2022-04-19 16:26 | XRAY ---
Indication: Left facial pain following fall. Multiple contiguous axial images obtained through the head without contrast. Comparison: October 28, 2021 Again age-appropriate global atrophy and mild periventricular degenerative micro-ischemia. No acute intracranial hemorrhage, abnormal extra-axial fluid collection, or mass effect. Fourth ventricle is midline without hydrocephalus. Bony calvarium intact. Visualized paranasal sinuses and mastoid air cells are clear. Impression: Continued nonacute senile brain.
--- NOTE | 2022-04-19 16:28 | XRAY ---
Indication: Left facial pain following fall. Multiple contiguous axial images obtained through the cervical spine. Sagittal and coronal reformatted images obtained. Comparison: August 11, 2020 Again age-related osteopenia. Axial images negative for acute fracture, suspicious bony lesions, or spinal canal stenosis. Again mild/moderate C3-C7 degenerative endplate spurring, atlantoaxial degenerative changes, and multilevel mild bilateral degenerative facet hypertrophy. Sagittal and coronal reformatted images again demonstrates normal alignment with C3-C7 disc space loss and minimal 1 mm C7 anterolisthesis. No acute compression fracture or jumped facet. Normal appearing craniocervical junction. Visualized noncontrasted soft tissues unremarkable. CT facial bones, CT head, and CT chest reported separately. Impression: Stable osteopenia, multilevel degenerative spondylosis, and minimal grade 1 C7 listhesis. No new/acute abnormalities.
--- NOTE | 2022-04-19 16:32 | XRAY ---
Indication: Left facial pain following fall. Multiple contiguous axial images obtained through the facial bones. Sagittal and coronal reformatted images obtained. Comparison: None Osseous structures demineralized consistent with patient's age. A few bilateral dental amalgams produces beam artifact. No acute fracture, suspicious bony lesions, or opaque foreign body. Old fracture deformity floor right orbit. Remaining orbits including roof, raines, and floors intact. TMJ bilaterally symmetric. Paranasal sinuses and nasal passages are clear. Minimal nasal septal deviation to the left. Remaining visualized noncontrasted soft tissues unremarkable. CT head and CT cervical spine reported separately. Impression: Osteopenia, old fracture floor right orbit, and minimal nasal septal deviation. No acute fracture.
--- NOTE | 2022-04-19 16:39 | XRAY ---
Indication: Left facial and chest pain following fall. Multiple contiguous axial images obtained through the chest without contrast. Comparison: September 02, 2019 Again beam artifact from bilateral shoulder arthroplasty. Lungs again demonstrates a few tiny bilateral calcified granulomas. Mild subsegmental atelectasis/scarring in both lower lobes. No suspicious pulmonary mass, infiltrate, effusion, or pneumothorax. Heart not enlarged. Aorta minimally arteriosclerotic without aneurysm. Stable small mediastinal and left hilar calcified nodes. No pathologic mediastinal lymphadenopathy. Bony thorax demonstrates new nondisplaced anterior left 4/5 rib fractures. Elsewhere osteopenia and mild/moderate degenerative changes throughout the spine. New remote T11 superior endplate fracture with approximately 50% height loss. Stable tiny T12 bone island. Limited upper abdomen again demonstrates splenic calcified granulomas. Nonobstructing right renal punctate calculi not previously included in the [id number]. Impression: 1. Again beam artifact from bilateral shoulder arthroplasty. 2. New nondisplaced left 4/5 rib fractures without hemothorax/pneumothorax. 3. New finding for old T11 superior endplate fracture. 4. Chronic findings including arteriosclerotic disease, calcified granulomas, chronic bony findings, and nonobstructing right renal micro-calculi.
[2022-04-19 17:37] VITALS: BP 175/85; PULSE 78; O2SAT 98
== END 2022-04-19 17:41 | disposition home or self-care (01) ==
LOC: ED 13:38
DX: S22.32XA Fracture of one rib, left side, initial encounter for closed fracture (principal); S22.089A Unspecified fracture of T11-T12 vertebra, initial encounter for closed fracture; W19.XXXA Unspecified fall, initial encounter; Z91.81 History of falling; M85.80 Other specified disorders of bone density and structure, unspecified site; D64.9 Anemia, unspecified; R07.81 Pleurodynia; I10 Essential (primary) hypertension; Z79.52 Long term (current) use of systemic steroids; Z79.899 Other long term (current) drug therapy
CPT/HCPCS: 36415; 70450; 70486; 71250; 72125; 80053; 81015; 85025; 99283

== ENCOUNTER 2022-07-28 18:03 | Emergency (ER) | payer MEDICARE ==
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
[2022-07-28 18:50] LABS: Absolute Neutrophil Ct (ANC) 6.48 x10^3/uL (1.4-6.9); BASOPHIL % 0.4 % (0.0-0.4); Basophil (Absolute #) 0.03 x10^3/uL (0-0.4); Eosinophil % 1.1 % (0.00-5.0); Eosinophil (Absolute #) 0.09 x10^3/uL (0-0.5); Hematocrit 35.7 % (42-50); Hemoglobin 10.6 g/dL (12.5-18.0); IMMATURE GRAN # 0.05 x10^3u/L (0.00-0.03); IMMATURE GRAN % 0.6 % (0.00-0.4); Lymphocyte (Absolute #) 0.78 x10^3/uL (1.0-4.6); Lymphocytes % 9.8 % (24.0-44.0); Mean Cell Volume 90.6 fL (78-100); Mean Corpuscular Hemoglobin 26.9 pg (26-32); Mean Corpuscular Hgb Concent. 29.7 g/dL (32-36); Mean Platelet Volume 9.2 fL (7.5-11.0); Monocyte (Absolute #) 0.57 x10^3/uL (0.0-1.3); Monocytes % 7.1 % (0.0-12.0); Platelet Count 155 x10^3/uL (150-450); Red Blood Count 3.94 x10^6/uL (4.1-5.6); Red Cell Distribution Width 17.1 % (11.5-14.0)
[2022-07-28 19:00] LABS: INR 0.93 (0.8-3.0); PROTIME 10.2 SECONDS (9.4-12.5)
[2022-07-28 19:46] LABS: Appearance Clear (Clear); Bacteria None Seen /HPF (None Seen); Bilirubin Negative (Negative); Blood Negative (Negative); Epithelial Cells None Seen /HPF (None Seen); Glucose, Urine Negative (Negative); Ketones Negative (Negative); Leukocyte Esterase Negative (Negative); Nitrite Negative (Negative); Protein,Urine Dip Trace (Negative); RBC 0-2 /HPF (0-5); Urobilinogen 0.2 mg/dL (0.2); WBC 0-2 /HPF (0-5)
[2022-07-28 19:51] LABS: ADD URINE CULTURE? NO (NO)
[2022-07-28 19:59] LABS: ALBUMIN 3.7 g/dL (3.5-5.0); ALKALINE PHOSPHATASE 134 U/L (38-126); ANION GAP 12.3 MEQ/L (5-15); BLOOD UREA NITROGEN 34 mg/dL (9-20); CHLORIDE 101 mmol/L (98-107); Calcium 8.5 mg/dL (8.4-10.2); Carbon Dioxide 28 mmol/L (22-30); EST GLOMERULAR FILTRATION RATE > 60.0 ML/MIN; Glucose 120 mg/dL (74-106); Potassium 4.9 mmol/L (3.5-5.1); SGOT/AST 28 U/L (17-59); SGPT/ALT 27 U/L (0-50); SODIUM 136 mmol/L (137-145); Total Protein 6.5 g/dL (6.3-8.2)
[2022-07-28 20:31] VITALS: BP 143/83; PULSE 95; O2SAT 96
--- NOTE | 2022-07-29 08:37 | XRAY ---
Indication: Head injury following fall. Multiple contiguous axial images obtained through the head without contrast. Comparison: April 19, 2022 Again age-appropriate global atrophy and mild periventricular degenerative micro-ischemia. No acute intracranial hemorrhage, abnormal extra-axial fluid collection, or mass effect. Fourth ventricle is midline without hydrocephalus. Bony calvarium intact. Visualized paranasal sinuses and mastoid air cells are clear. Impression: Continued nonacute senile brain.
--- NOTE | 2022-07-29 08:43 | XRAY ---
Indication: Status post fall. Comparison: May 11, 2021 Portable chest again demonstrates chronic right hemidiaphragm elevation with now minimal right base discoid atelectasis/scarring. Remaining heart and lungs are unremarkable again with incidental tiny calcified granulomas. Bony thorax intact again with osteopenia, degenerative changes, and bilateral shoulder arthroplasty. Impression: Continued nonacute chest with chronic features.
== END 2022-07-28 21:51 | disposition left against medical advice (07) ==
LOC: ED 18:03
DX: S06.0X0A Concussion without loss of consciousness, initial encounter (principal); S51.811A Laceration without foreign body of right forearm, initial encounter; W01.190A Fall on same level from slipping, tripping and stumbling with subsequent striking against furniture, initial encounter; Y92.129 Unspecified place in nursing home as the place of occurrence of the external cause; F03.90 Unspecified dementia, unspecified severity, without behavioral disturbance, psychotic disturbance, mood disturbance, and anxiety; I10 Essential (primary) hypertension; Z79.52 Long term (current) use of systemic steroids; Z79.899 Other long term (current) drug therapy; Z86.718 Personal history of other venous thrombosis and embolism
CPT/HCPCS: 36415; 70450; 71045; 80053; 81001; 84484; 85025; 85610; 93005; 99284

== ENCOUNTER 2022-08-24 16:02 | Emergency (ER) | payer MEDICARE ==
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
[2022-08-24 16:18] VITALS: BP 144/84; PULSE 97; O2SAT 92
--- NOTE | 2022-08-24 16:58 | XRAY ---
Indication: Posterior head injury following fall. Multiple contiguous axial images obtained through the head without contrast. Comparison: July 28, 2022 Again age-appropriate global atrophy and mild periventricular degenerative micro-ischemia bilaterally. No acute intracranial hemorrhage, abnormal extra-axial fluid collection, or mass effect. Fourth ventricle is midline without hydrocephalus. New tiny right occipital scalp hematoma. Bony calvarium intact. Visualized paranasal sinuses and mastoid air cells are clear. Impression: New tiny right occipital scalp hematoma without underlying fracture. Continued nonacute senile brain.
--- NOTE | 2022-08-24 17:03 | XRAY ---
Indication: Posterior head injury following fall. Multiple contiguous axial images obtained through the cervical spine. Sagittal and coronal reformatted images obtained. Comparison: April 19, 2022 Again osteopenia. Axial images negative for acute fracture or suspicious bony lesions. Stable mild/moderate C3-C7 degenerative endplate spurring, atlantoaxial degenerative changes, and multilevel mild bilateral degenerative facet hypertrophy. Sagittal and coronal reformatted images again demonstrates normal alignment with C3-C7 disc space loss and minimal 1 mm C7 anterolisthesis. No acute compression fracture or jumped facet. Normal appearing craniocervical junction. Visualized noncontrasted soft tissues including lung apices are unremarkable. Impression: 1. Continued negative acute fracture. 2. Stable osteopenia, multilevel degenerative spondylosis, and minimal grade 1 C7 listhesis.
== END 2022-08-24 17:24 | disposition home or self-care (01) ==
LOC: ED 16:02
DX: S00.01XA Abrasion of scalp, initial encounter (principal); W18.30XA Fall on same level, unspecified, initial encounter; Y92.122 Bedroom in nursing home as the place of occurrence of the external cause; M54.2 Cervicalgia; F03.90 Unspecified dementia, unspecified severity, without behavioral disturbance, psychotic disturbance, mood disturbance, and anxiety; E78.5 Hyperlipidemia, unspecified; I10 Essential (primary) hypertension; Z79.52 Long term (current) use of systemic steroids; Z79.899 Other long term (current) drug therapy
CPT/HCPCS: 70450; 72125; 99282